=== PATIENT | female | born 1950 | race Asian ===

== ENCOUNTER 2018-11-13 16:19 | Inpatient (IN) | payer MEDICAID ==
[~2018-11-13] VITALS: Ht 160 cm; Wt 62.2 kg
[~2018-11-13 16:19] MED LIST: ALBU2.5V8 IH; BUDE10.2 IH; DOXY100T PO; ESOM40CA PO; HYDR-2145 PO; LOSA-73 PO; METF500T16 PO; METH4TAB2 PO; TIOT18CA IH
[2018-11-13] MEDS ORDERED: methylPREDNISolone SOD SUCC PF 125 MG/2 ML VIAL. IV ONE (17:00)
[2018-11-13] MEDS ORDERED: IPRATRPIUM/ALBUTEROL 0.5/2.5MG 3 ML NEBU. NEB ONE ×2 (17:00→17:45)
--- NOTE | 2018-11-13 17:03 | PHYS DOC ---
Past Medical History Past Medical History: Asthma, CHF, COPD, Diabetes-Type II, GERD, Hypertension (RUDI PAEZ APRN) Past Surgical History: Cholecystectomy (RUDI PAEZ APRN) Alcohol Use: None Drug Use: None (RUDI PAEZ APRN) Adult General Chief Complaint Chief Complaint: ASTHMA HPI HPI 68-year-old female presents to ER via POV with her daughter who is translating as patient speaks Tajik. Per daughter patient has history of asthma and for the past week has had nonproductive cough. She reports in the past few days patient has complained of mid chest pain and intermittent shortness of air. Patient denies fever, urinary symptoms, or swelling. She reports she has had a couple episodes of diarrhea over the past week. Patient reports history of diabetes and hypertension. Patient denies smoking history. Patient did drive from [place] approximately 2 weeks ago to visit family here. (RUDI PAEZ APRN) Review of Systems Review of Systems Constitutional: Denies fever or chills [] Eyes: Denies change in visual acuity, redness, or eye pain [] HENT: Denies nasal congestion. Reports sore throat Respiratory: Reports nonprod. cough and intermittent SOA Cardiovascular: Reports mid CP GI: Denies abdominal pain, nausea, vomiting, bloody stools. Reports diarrhea over past few days-couple of episodes : Denies dysuria or hematuria [] Musculoskeletal: Denies back/neck pain or joint pain [] Integument: Denies rash or skin lesions [] Neurologic: Denies headache, focal weakness or sensory changes [] Endocrine: Denies polyuria or polydipsia [] All other systems were reviewed and found to be within normal limits, except as documented in this note. (RUDI PAEZ APRN) Current Medications Current Medications Current Medications Medications (Trade) Dose Ordered Sig/Santhosh Start Time Stop Time Status Last Admin Dose Admin Albuterol/ Ipratropium (Duoneb) 3 ml 1X ONCE 11/13/18 17:45 11/13/18 17:46 DC 11/13/18 17:50 3 ML Azithromycin 250 ml @ 250 mls/hr 1X ONCE 11/13/18 18:45 11/13/18 19:44 DC 11/13/18 19:26 250 MLS/HR Ceftriaxone Sodium (Rocephin) 1 gm 1X ONCE 11/13/18 18:45 11/13/18 18:46 DC 11/13/18 19:27 1 GM Magnesium Sulfate 50 ml @ 25 mls/hr 1X ONCE 11/13/18 18:15 11/13/18 20:14 DC 11/13/18 19:27 25 MLS/HR Methylprednisolone Sodium Succinate (SOLU-Medrol 125MG VIAL) 125 mg 1X ONCE 11/13/18 17:00 11/13/18 17:01 DC 11/13/18 17:10 125 MG (EDELMIRA MOYA MD) Allergies Allergies Allergies Coded Allergies Type Severity Reaction Last Updated Verified No Known Drug Allergies 09/30/14 No (EDELMIRA MOYA MD) Physical Exam Physical Exam Constitutional: Well developed, well nourished, no acute distress, non-toxic appearance. Fatigued appearance HENT: Normocephalic, atraumatic, bilateral ears normal, oropharynx moist- bilat. tonsillar swelling/mild erythema- uvula midline, no oral exudates, nose normal. [] Eyes: Pupils equal, conjunctiva normal, no discharge. [] Neck: Normal range of motion, no tenderness/nuchal rigidity, supple, no stridor/gross adenopathy Cardiovascular: Heart rate regular rhythm, no murmur [] Lungs & Thorax: Bilateral breath sounds clear to auscultation- diminished air movement throughout all lung bowman- less in bases Abdomen: Bowel sounds normal, soft, no tenderness, no masses, no pulsatile masses. [] Skin: Warm, dry, no erythema, no rash. [] Back: No tenderness, no CVA tenderness. [] Extremities: No tenderness, no cyanosis, no clubbing, ROM intact, no edema. [] Neurologic: Alert and oriented X 3, normal motor function, normal sensory function, no focal deficits noted. [] Psychologic: Affect normal, judgement normal, mood normal. [] (REFFITT,RUDI Ocampo APRN) Current Patient Data Vital Signs Vital Signs Date Time Temp Pulse Resp B/P (MAP) Pulse Ox O2 Delivery O2 Flow Rate FiO2 11/13/18 18:00 86 141/65 (90) 91 Room Air 11/13/18 16:27 98.3 16 98.3 (EDELMIRA MOYA MD) Lab Values Laboratory Tests Test 11/13/18 17:10 8/5/19 18:17 White Blood Count 13.8 x10^3/uL (4.0-11.0) H Red Blood Count 4.32 x10^6/uL (3.50-5.40) Hemoglobin 11.5 g/dL (12.0-15.5) L Hematocrit 35.2 % (36.0-47.0) L Mean Corpuscular Volume 82 fL (79-100) Mean Corpuscular Hemoglobin 27 pg (25-35) Mean Corpuscular Hemoglobin Concent 33 g/dL (31-37) Red Cell Distribution Width 14.8 % (11.5-14.5) H Platelet Count 302 x10^3/uL (140-400) Neutrophils (%) (Auto) 76 % (31-73) H Lymphocytes (%) (Auto) 18 % (24-48) L Monocytes (%) (Auto) 4 % (0-9) Eosinophils (%) (Auto) 1 % (0-3) Basophils (%) (Auto) 1 % (0-3) Neutrophils # (Auto) 10.4 x10^3/uL (1.8-7.7) H Lymphocytes # (Auto) 2.5 x10^3/uL (1.0-4.8) Monocytes # (Auto) 0.5 x10^3/uL (0.0-1.1) Eosinophils # (Auto) 0.2 x10^3/uL (0.0-0.7) Basophils # (Auto) 0.1 x10^3/uL (0.0-0.2) D-Dimer (Lis) 0.35 ug/mlFEU (0.00-0.50) Sodium Level 140 mmol/L (136-145) Potassium Level 3.3 mmol/L (3.5-5.1) L Chloride Level 100 mmol/L (98-107) Carbon Dioxide Level 28 mmol/L (21-32) Anion Gap 12 (6-14) Blood Urea Nitrogen 9 mg/dL (7-20) Creatinine 0.7 mg/dL (0.6-1.0) Estimated GFR (Cockcroft-Gault) 83.5 BUN/Creatinine Ratio 13 (6-20) Glucose Level 112 mg/dL (70-99) H Calcium Level 9.3 mg/dL (8.5-10.1) Magnesium Level 1.4 mg/dL (1.8-2.4) L Total Bilirubin 0.3 mg/dL (0.2-1.0) Aspartate Amino Transferase (AST) 14 U/L (15-37) L Alanine Aminotransferase (ALT) 16 U/L (14-59) Alkaline Phosphatase 55 U/L (46-116) Troponin I Quantitative < 0.017 ng/mL (0.000-0.055) Total Protein 7.9 g/dL (6.4-8.2) Albumin 3.3 g/dL (3.4-5.0) L Albumin/Globulin Ratio 0.7 (1.0-1.7) L Urine Collection Type Void Urine Color Straw Urine Clarity Clear Urine pH 6.5 Urine Specific Clay <=1.005 Urine Protein Negative mg/dL (NEG-TRACE) Urine Glucose (UA) Negative mg/dL (NEG) Urine Ketones (Stick) Negative mg/dL (NEG) Urine Blood Trace (NEG) Urine Nitrite Negative (NEG) Urine Bilirubin Negative (NEG) Urine Urobilinogen Dipstick 0.2 mg/dL (0.2 mg/dL) Urine Leukocyte Esterase Negative (NEG) Urine RBC Rare /HPF (0-2) Urine WBC 0 /HPF (0-4) Urine Squamous Epithelial Cells Occ /LPF Urine Bacteria 0 /HPF (0-FEW) Laboratory Tests 11/13/18 17:10 Laboratory Tests 11/13/18 17:10 (EDELMIRA MOYA MD) Lab Values Laboratory Tests Test 11/13/18 17:10 11/13/18 18:17 White Blood Count 13.8 x10^3/uL (4.0-11.0) H Red Blood Count 4.32 x10^6/uL (3.50-5.40) Hemoglobin 11.5 g/dL (12.0-15.5) L Hematocrit 35.2 % (36.0-47.0) L Mean Corpuscular Volume 82 fL (79-100) Mean Corpuscular Hemoglobin 27 pg (25-35) Mean Corpuscular Hemoglobin Concent 33 g/dL (31-37) Red Cell Distribution Width 14.8 % (11.5-14.5) H Platelet Count 302 x10^3/uL (140-400) Neutrophils (%) (Auto) 76 % (31-73) H Lymphocytes (%) (Auto) 18 % (24-48) L Monocytes (%) (Auto) 4 % (0-9) Eosinophils (%) (Auto) 1 % (0-3) Basophils (%) (Auto) 1 % (0-3) Neutrophils # (Auto) 10.4 x10^3/uL (1.8-7.7) H Lymphocytes # (Auto) 2.5 x10^3/uL (1.0-4.8) Monocytes # (Auto) 0.5 x10^3/uL (0.0-1.1) Eosinophils # (Auto) 0.2 x10^3/uL (0.0-0.7) Basophils # (Auto) 0.1 x10^3/uL (0.0-0.2) D-Dimer (Lis) 0.35 ug/mlFEU (0.00-0.50) Sodium Level 140 mmol/L (136-145) Potassium Level 3.3 mmol/L (3.5-5.1) L Chloride Level 100 mmol/L (98-107) Carbon Dioxide Level 28 mmol/L (21-32) Anion Gap 12 (6-14) Blood Urea Nitrogen 9 mg/dL (7-20) Creatinine 0.7 mg/dL (0.6-1.0) Estimated GFR (Cockcroft-Gault) 83.5 BUN/Creatinine Ratio 13 (6-20) Glucose Level 112 mg/dL (70-99) H Calcium Level 9.3 mg/dL (8.5-10.1) Magnesium Level 1.4 mg/dL (1.8-2.4) L Total Bilirubin 0.3 mg/dL (0.2-1.0) Aspartate Amino Transferase (AST) 14 U/L (15-37) L Alanine Aminotransferase (ALT) 16 U/L (14-59) Alkaline Phosphatase 55 U/L (46-116) Troponin I Quantitative < 0.017 ng/mL (0.000-0.055) Total Protein 7.9 g/dL (6.4-8.2) Albumin 3.3 g/dL (3.4-5.0) L Albumin/Globulin Ratio 0.7 (1.0-1.7) L Urine Collection Type Void Urine Color Straw Urine Clarity Clear Urine pH 6.5 Urine Specific Clay <=1.005 Urine Protein Negative mg/dL (NEG-TRACE) Urine Glucose (UA) Negative mg/dL (NEG) Urine Ketones (Stick) Negative mg/dL (NEG) Urine Blood Trace (NEG) Urine Nitrite Negative (NEG) Urine Bilirubin Negative (NEG) Urine Urobilinogen Dipstick 0.2 mg/dL (0.2 mg/dL) Urine Leukocyte Esterase Negative (NEG) Urine RBC Rare /HPF (0-2) Urine WBC 0 /HPF (0-4) Urine Squamous Epithelial Cells Occ /LPF Urine Bacteria 0 /HPF (0-FEW) Laboratory Tests 11/13/18 17:10 Laboratory Tests 11/13/18 17:10 (RUDI PAEZ APRN) EKG EKG EKG obtained 11/13/18 at 1658 Interpreted by ER physician Sinus rhythm Rate 91 No STEMI (RUDI PAEZ APRN) Radiology/Procedures Radiology/Procedures [] (RUDI PAEZ APRN) Course & Med Decision Making Course & Med Decision Making Pertinent Labs and Imaging studies reviewed. (See chart for details) 1835: Dr. Moya viewed pt's chest xray- probable RLL infiltr. Pt's WBCs at 13.4. Will have blood cxs obtained and lactic. She with no recent hospitalization will start her on IV Rocephin and azithromycin. Will admit to hospitalist for further care and monitoring. Patient has received 2 DuoNeb treatments with O2 saturation currently 99%. Patient received Solu-Medrol 125 mg IV. Mg was 1.4 on labs- 2gms Mg given IV. Patient appears fatigued and does continue to have some mid chest discomfort during coughing episodes which is reproducible on palpation. EKG with no acute ST elevation or STEMI and troponin was negative. With patient's recent travel from [place] 2 weeks ago d-dimer was obtained which was normal limits. Test results were discussed with patient and her family. Discussed plans for admission and all agreeable with admitting plan. 1845: Spoke with Dr. Garduno, hospitalist and discussed pt's case/admit plan. Pt had not mentioned during initial exam but past records show prior admit with COPD exacerb. (RUDI PAEZ APRN) Course & Med Decision Making Staff Physician Addendum: I was working in the ER during the course of this patient's visit. I was available for consultation as needed, but I was not directly involved in the care of this patient. (EDELMIRA MOYA MD) Dragon Disclaimer Dragon Disclaimer This electronic medical record was generated, in whole or in part, using a voice recognition dictation system. (RUDI PAEZ APRN) Departure Departure Impression: Primary Impression: RLL pneumonia Disposition: ADMITTED INPATIENT Admitting Physician: ETIENNE (RUDI PAEZ APRN) Condition: STABLE Referrals: NO PCP (PCP) RUDI PAEZ APRN Nov 13, 2018 17:03 EDELMIRA MOYA MD Nov 13, 2018 23:08
[2018-11-13 17:19] LABS: BASO # 0.1 x10^3/uL (0.0-0.2); BASO % 1 % (0-3); EOS # 0.2 x10^3/uL (0.0-0.7); EOS % 1 % (0-3); HEMATOCRIT 35.2 % (36.0-47.0); HEMOGLOBIN 11.5 g/dL (12.0-15.5); LYMPH # 2.5 x10^3/uL (1.0-4.8); LYMPH % 18 % (24-48); MEAN CORPUSCULAR HEMOGLOBIN 27 pg (25-35); MEAN CORPUSCULAR HGB CONC 33 g/dL (31-37); MEAN CORPUSCULAR VOLUME 82 fL (79-100); MONO # 0.5 x10^3/uL (0.0-1.1); MONO % 4 % (0-9); NEUT # 10.4 x10^3/uL (1.8-7.7); NEUT % 76 % (31-73); PLATELET COUNT 302 x10^3/uL (140-400); RED BLOOD COUNT 4.32 x10^6/uL (3.50-5.40); RED CELL DISTRIBUTION WIDTH 14.8 % (11.5-14.5); WHITE BLOOD COUNT 13.8 x10^3/uL (4.0-11.0)
[2018-11-13 17:34] LABS: CALCIUM 9.3 mg/dL (8.5-10.1); CREATININE 0.7 mg/dL (0.6-1.0); GFR 83.5; POTASSIUM 3.3 mmol/L (3.5-5.1)
[2018-11-13 17:40] LABS: ALBUMIN 3.3 g/dL (3.4-5.0); ALBUMIN/GLOBULIN RATIO 0.7 (1.0-1.7); MAGNESIUM 1.4 mg/dL (1.8-2.4); TOTAL BILIRUBIN 0.3 mg/dL (0.2-1.0); TOTAL PROTEIN 7.9 g/dL (6.4-8.2)
[2018-11-13] MEDS ORDERED: MAGNESIUM SULFATE 2GM 50 ML IV ONE (18:15)
[2018-11-13 18:35] LABS: BILIRUBIN,URINE NEGATIVE (NEG); CLARITY,URINE CLEAR; NITRITE,URINE NEGATIVE (NEG); PH,URINE 6.5; PROTEIN,URINE NEGATIVE (NEG-TRACE); UROBILINOGEN,URINE 0.2 mg/dL (0.2 mg/dL)
[2018-11-13] MEDS ORDERED: AZITHRMYCN 500MG IVPB FOR OMNI 250 ML IV ONE (18:45)
[2018-11-13] MEDS ORDERED: cefTRIAXone IV Push 1 GM VIAL. IVP ONE (18:45)
[2018-11-13 19:11] LABS: BACTERIA,URINE 0 /HPF (0-FEW); COLOR,URINE STRAW; RBC,URINE RARE /HPF (0-2); SQUAMOUS EPITHELIAL CELL,UR OCC /LPF; WBC,URINE 0 /HPF (0-4)
[2018-11-13] MEDS ORDERED: ACETAMINOPHEN 325 MG TABLET. PO PRN (19:30)
[2018-11-13] MEDS ORDERED: IPRATRPIUM/ALBUTEROL 0.5/2.5MG 3 ML NEBU. NEB SCH (20:00)
[2018-11-13] MEDS ORDERED: DEXTROSE 50% 25 GM / 50ML DISP.SYRIN. IV PRN (20:15)
[2018-11-13] MEDS ORDERED: ALBUTEROL SULFATE 2.5 MG/3 ML NEBU. INH PRN (20:15)
[2018-11-13] MEDS ORDERED: POTASSIUM CHLORIDE 20 MEQ TABLET.ER. PO ONE (20:15)
[2018-11-13] MEDS ORDERED: IV DEXTROSE 5% 250 ML BAG. IV PRN (20:15)
[2018-11-13] MEDS ORDERED: NON FORMULARY ITEM (Budesonide/Formoterol Fumarate (Symbicort 160-4.5 Mcg Inhaler) 2 PUFF) IH SCH (21:00)
[2018-11-13] MEDS ORDERED: IV NORMAL SALINE 500ML BAG 500 ML IV ONE (22:00)
[2018-11-13] MEDS: INSULIN LISPRO 300 UNITS/3 ML INSULN.PEN. SQ SCH (22:02)
[2018-11-13 23:00] VITALS: BP 131/62
[2018-11-13] MEDS: ALBUTEROL SULFATE 2.5 MG/3 ML NEBU. NEB SCH (23:28)
[2018-11-14 03:00] VITALS: BP 135/70
[2018-11-14 07:00] VITALS: BP 160/82
[2018-11-14] MEDS: ALBUTEROL SULFATE 2.5 MG/3 ML NEBU. NEB SCH ×2 (07:15→12:00)
--- NOTE | 2018-11-14 07:24 | EKG ---
[facility] [address] [place] [address] Test Date: 2018-11-13 Test Time: 16:58:35 Pat Name: NORA OWUSU Department: Room: Gender: F [employer]: : 1950 Requested By: RUDI PAEZ Order Number: [id number] Reading MD: Measurements Intervals Graham Rate: 91 P: 90 UT: 148 QRS: 37 QRSD: 78 T: 52 QT: 360 QTc: 444 Interpretive Statements SINUS RHYTHM NORMAL ECG RI6.01 No previous ECG available for comparison
--- NOTE | 2018-11-14 07:46 | RAD ---
CHEST PA LATERAL History: Cough, chest pain Comparison: 09/30/2014 AP view of the chest. Findings: The cardiomediastinal silhouette is normal. Pulmonary vasculature is normal. The lungs are clear. Very minimal atelectasis along the anterior aspect of a major fissure suggested on the lateral view. No pleural effusion or pneumothorax is seen. There is no acute bone abnormality. Mild pulmonary hyperinflation. IMPRESSION: No suspicious cardiopulmonary process. Electronically signed by: Arley Hyde MD (11/14/2018 7:43 AM) [facility]
[2018-11-14] MEDS ORDERED: BUDESONIDE 0.5 MG/2 ML NEBU. NEB SCH (08:00)
[2018-11-14] MEDS: PANTOPRAZOLE 40 MG TABLET.DR. PO SCH (08:34)
[2018-11-14] MEDS: hydroCHLOROthiazide 25 MG TABLET PO SCH (08:35)
[2018-11-14] MEDS: metFORMIN 500 MG TABLET PO SCH ×2 (08:35→16:24)
[2018-11-14] MEDS: LOSARTAN POTASSIUM 50 MG TABLET. PO SCH (08:35)
[2018-11-14] MEDS: INSULIN LISPRO 300 UNITS/3 ML INSULN.PEN. SQ SCH ×4 (08:40→21:44)
[2018-11-14] MEDS ORDERED: predniSONE 20 MG TABLET PO SCH (09:00)
[2018-11-14 09:04] LABS: BASO % 0 % (0-3); EOS % 0 % (0-3); HEMATOCRIT 36.4 % (36.0-47.0); HEMOGLOBIN 11.8 g/dL (12.0-15.5); LYMPH # 1.2 x10^3/uL (1.0-4.8); LYMPH % 10 % (24-48); MEAN CORPUSCULAR HEMOGLOBIN 26 pg (25-35); MEAN CORPUSCULAR HGB CONC 32 g/dL (31-37); MEAN CORPUSCULAR VOLUME 82 fL (79-100); MONO # 0.1 x10^3/uL (0.0-1.1); MONO % 1 % (0-9); NEUT # 10.3 x10^3/uL (1.8-7.7); NEUT % 89 % (31-73); PLATELET COUNT 330 x10^3/uL (140-400); RED BLOOD COUNT 4.47 x10^6/uL (3.50-5.40); RED CELL DISTRIBUTION WIDTH 15.2 % (11.5-14.5); WHITE BLOOD COUNT 11.7 x10^3/uL (4.0-11.0)
[2018-11-14 09:18] LABS: ALBUMIN 3.3 g/dL (3.4-5.0); ALBUMIN/GLOBULIN RATIO 0.7 (1.0-1.7); CALCIUM 9.2 mg/dL (8.5-10.1); CREATININE 0.7 mg/dL (0.6-1.0); GFR 83.5; POTASSIUM 3.9 mmol/L (3.5-5.1); TOTAL BILIRUBIN 0.3 mg/dL (0.2-1.0); TOTAL PROTEIN 8.2 g/dL (6.4-8.2)
--- NOTE | 2018-11-14 09:37 | PDOC1 ---
History and Physical Date of Admission Date of Admission DATE: 11/14/18 TIME: 09:36 Identification/Chief Complaint Chief Complaint SEEN IN ER via POV with her daughter who is translating as patient speaks Vietnamese. Per daughter patient has history of asthma and for the past week has had nonproductive cough. She reports in the past few days patient has complained of mid chest pain and intermittent shortness of air. Patient denies fever, urinary symptoms, or swelling. She reports she has had a couple episodes of diarrhea over the past week. Patient reports history of diabetes and hypertension. denies smoking history. became hypoxic and placed on o2 she is still in mild distress with accessory muscle use today per daughter, her country had lots of air pollution, cooked with coal, never smoked Past Medical History Past Medical History Past Medical History: Asthma, CHF, COPD, Diabetes-Type II, GERD, Hypertension Past Medical History Past Medical History: Asthma, CHF, COPD, Diabetes-Type II, GERD, Hypertension Past Surgical History: No Surgical History Alcohol Use: None Drug Use: None FHX DIABETES Family History Family History: Hypertension Social History Smoke: No ALCOHOL: none Drugs: None Current Problem List Problem List Problems Medical Problems: (1) RLL pneumonia Status: Acute Current Medications Current Medications Current Medications Albuterol/ Ipratropium (Duoneb) 3 ml 1X ONCE NEB Last administered on 11/13/18at 16:54; Start 11/13/18 at 17:00; Stop 11/13/18 at 17:01; Status DC Methylprednisolone Sodium Succinate (SOLU-Medrol 125MG VIAL) 125 mg 1X ONCE IV Last administered on 11/13/18at 17:10; Start 11/13/18 at 17:00; Stop 11/13/18 at 17:01; Status DC Albuterol/ Ipratropium (Duoneb) 3 ml 1X ONCE NEB Last administered on 11/13/18at 17:50; Start 11/13/18 at 17:45; Stop 11/13/18 at 17:46; Status DC Magnesium Sulfate 50 ml @ 25 mls/hr 1X ONCE IV Last administered on 11/13/18at 19:27; Start 11/13/18 at 18:15; Stop 11/13/18 at 20:14; Status DC Ceftriaxone Sodium (Rocephin) 1 gm 1X ONCE IVP Last administered on 11/13/18at 19:27; Start 11/13/18 at 18:45; Stop 11/13/18 at 18:46; Status DC Azithromycin 250 ml @ 250 mls/hr 1X ONCE IV Last administered on 11/13/18 19:26; Start 11/13/18 at 18:45; Stop 11/13/18 at 19:44; Status DC Acetaminophen (Tylenol) 650 mg PRN Q4HRS PRN PO FEVER Last administered on 11/13/18 22:34; Start 11/13/18 at 19:30; Stop 11/14/18 at 19:29 Albuterol/ Ipratropium (Duoneb) 3 ml RTQID NEB Last administered on 11/13/18 19:51; Start 11/13/18 at 20:00; Stop 11/13/18 at 20:43; Status DC Albuterol Sulfate (Ventolin Neb Soln) 2.5 mg PRN Q2HRS PRN INH shorntess of breath; Start 11/13/18 at 20:15 Hydrochlorothiazide (Hydrodiuril) 25 mg DAILY PO Last administered on 11/14/18 08:41; Start 11/14/18 at 09:00 Losartan Potassium (Cozaar) 50 mg DAILY PO Last administered on 11/14/18 08:41; Start 11/14/18 at 09:00 Non-Formulary Medication (Budesonide/ Formoterol Fumarate (Symbicort 160-4.5 Mcg Inhaler)) 2 puff BID IH ; Start 11/13/18 at 21:00; Status UNV Pantoprazole Sodium (Protonix) 40 mg DAILYAC PO Last administered on 11/14/18 08:41; Start 11/14/18 at 07:30 Metformin HCl (Glucophage) 500 mg BIDWMEALS PO Last administered on 11/14/18 08:41; Start 11/14/18 at 08:00 Prednisone (Prednisone) 20 mg DAILY PO Last administered on 11/14/18 08:41; Start 11/14/18 at 09:00 Potassium Chloride (Klor-Con) 40 meq 1X ONCE PO Last administered on 11/13/18 21:54; Start 11/13/18 at 20:15; Stop 11/13/18 at 20:38; Status DC Insulin Human Lispro (HumaLOG) 0-7 UNITS TIDWMEALHC SQ Last administered on 11/14/18at 08:41; Start 11/13/18 at 21:00 Dextrose (Dextrose 50%-Water Syringe) 12.5 gm PRN Q15MIN PRN IV SEE COMMENTS; Start 11/13/18 at 20:15; Status Cancel Dextrose 250 ml PRN Q15MIN PRN IV SEE COMMENTS; Start 11/13/18 at 20:15 Budesonide (Pulmicort) 0.5 mg RTBID NEB Last administered on 11/14/18at 07:51; Start 11/14/18 at 08:00 Albuterol Sulfate (Ventolin Neb Soln) 2.5 mg Q6HRS NEB Last administered on 11/14/18at 07:51; Start 11/14/18 at 00:00 Sodium Chloride 500 ml @ 500 mls/hr 1X ONCE IV Last administered on 11/13/18at 21:41; Start 11/13/18 at 22:00; Stop 11/13/18 at 22:59; Status DC Active Scripts Active Doxycycline Hyclate 100 Mg Tablet 100 Mg PO BID Medrol (Methylprednisolone) 4 Mg Tab.ds.pk 1 Pkg PO UD 6 Days Reported Hydrochlorothiazide Tablet (Hydrochlorothiazide) 25 Mg Tablet 1 Tab PO DAILY Spiriva (Tiotropium Joes) 18 Mcg Cap.w.dev 1 Cap IH DAILY Proventil Hfa Inhaler (Albuterol Sulfate) 6.7 Gm Hfa.aer.ad 2 Puff IH QID Symbicort 160-4.5 Mcg Inhaler (Budesonide/Formoterol Fumarate) 10.2 Gm Hfa.aer.ad 2 Puff IH BID Metformin Hcl 500 Mg Tablet 1 Tab PO BID Losartan Potassium 50 Mg Tablet 1 Tab PO DAILY Nexium Capsule (Esomeprazole Magnesium) 40 Mg Capsule.dr 1 Cap PO DAILY Allergies Allergies: Coded Allergies: No Known Drug Allergies (Unverified , 09/30/14) ROS Review of System Review of Systems Review of Systems Constitutional: Denies fever or chills [] Eyes: Denies change in visual acuity, redness, or eye pain [] HENT: Denies nasal congestion. Reports sore throat Respiratory: Reports nonprod. cough and intermittent SOA Cardiovascular: Reports mid CP GI: Denies abdominal pain, nausea, vomiting, bloody stools. Reports diarrhea over past few days-couple of episodes : Denies dysuria or hematuria [] Musculoskeletal: Denies back/neck pain or joint pain [] Integument: Denies rash or skin lesions [] Neurologic: Denies headache, focal weakness or sensory changes [] Endocrine: Denies polyuria or polydipsia [] 14 PT systems were reviewed and found to be within normal limits, except as documented . Physical Exam Physical Exam Physical Exam Physical Exam Constitutional: Well developed, well nourished, MILD acute distress, non-toxic appearance. Fatigued HENT: Normocephalic, atraumatic, bilateral ears normal, oropharynx moist- bilat. tonsillar swelling/mild erythema- uvula midline, no oral exudates, nose normal. [] Eyes: Pupils equal, conjunctiva normal, no discharge. [] Neck: Normal range of motion, no tenderness/nuchal rigidity, supple, no stridor/gross adenopathy Cardiovascular: Heart rate regular rhythm, no murmur [] Lungs & Thorax: rll crackles// diminished air movement throughout all lung bowman- less in bases mild labored effort accessory muscle use Abdomen: Bowel sounds normal, soft, no tenderness, no masses, no pulsatile masses. [] Skin: Warm, dry, no erythema, no rash. [] Back: No tenderness, no CVA tenderness. [] Extremities: No tenderness, no cyanosis, no clubbing, ROM intact, no edema. [] Neurologic: Alert and oriented X 3, normal motor function, normal sensory function, no focal deficits noted. [] Psychologic: Affect normal, judgement normal, mood normal. [] General: Alert, Oriented X3, Cooperative, mild distress HEENT: Atraumatic, PERRLA, EOMI, Mucous membr. moist/pink Heart: RRR, no murmurs Breasts: Not examined Abdomen: Normal bowel sounds, Soft, No tenderness Rectal Exam: not examined Extremities: No cyanosis Neuro: Normal speech, Cranial nerves 3-12 NL Psych/Mental Status: Mental status NL, Mood NL Vitals Vitals Vital Signs Date Time Temp Pulse Resp B/P (MAP) Pulse Ox O2 Delivery O2 Flow Rate FiO2 11/14/18 08:41 88 160/82 11/14/18 07:51 95 Room Air 11/14/18 07:00 98.3 18 2.0 98.3 Labs Labs Laboratory Tests Test 11/13/18 17:10 11/13/18 18:17 11/13/18 19:04 11/13/18 20:08 White Blood Count 13.8 x10^3/uL (4.0-11.0) Red Blood Count 4.32 x10^6/uL (3.50-5.40) Hemoglobin 11.5 g/dL (12.0-15.5) Hematocrit 35.2 % (36.0-47.0) Mean Corpuscular Volume 82 fL (79-100) Mean Corpuscular Hemoglobin 27 pg (25-35) Mean Corpuscular Hemoglobin Concent 33 g/dL (31-37) Red Cell Distribution Width 14.8 % (11.5-14.5) Platelet Count 302 x10^3/uL (140-400) Neutrophils (%) (Auto) 76 % (31-73) Lymphocytes (%) (Auto) 18 % (24-48) Monocytes (%) (Auto) 4 % (0-9) Eosinophils (%) (Auto) 1 % (0-3) Basophils (%) (Auto) 1 % (0-3) Neutrophils # (Auto) 10.4 x10^3/uL (1.8-7.7) Lymphocytes # (Auto) 2.5 x10^3/uL (1.0-4.8) Monocytes # (Auto) 0.5 x10^3/uL (0.0-1.1) Eosinophils # (Auto) 0.2 x10^3/uL (0.0-0.7) Basophils # (Auto) 0.1 x10^3/uL (0.0-0.2) D-Dimer (Lis) 0.35 ug/mlFEU (0.00-0.50) Sodium Level 140 mmol/L (136-145) Potassium Level 3.3 mmol/L (3.5-5.1) Chloride Level 100 mmol/L (98-107) Carbon Dioxide Level 28 mmol/L (21-32) Anion Gap 12 (6-14) Blood Urea Nitrogen 9 mg/dL (7-20) Creatinine 0.7 mg/dL (0.6-1.0) Estimated GFR (Cockcroft-Gault) 83.5 BUN/Creatinine Ratio 13 (6-20) Glucose Level 112 mg/dL (70-99) Calcium Level 9.3 mg/dL (8.5-10.1) Magnesium Level 1.4 mg/dL (1.8-2.4) Total Bilirubin 0.3 mg/dL (0.2-1.0) Aspartate Amino Transf (AST/SGOT) 14 U/L (15-37) Alanine Aminotransferase (ALT/SGPT) 16 U/L (14-59) Alkaline Phosphatase 55 U/L (46-116) Troponin I Quantitative < 0.017 ng/mL (0.000-0.055) Total Protein 7.9 g/dL (6.4-8.2) Albumin 3.3 g/dL (3.4-5.0) Albumin/Globulin Ratio 0.7 (1.0-1.7) Urine Collection Type Void Urine Color Straw Urine Clarity Clear Urine pH 6.5 Urine Specific [place] <=1.005 Urine Protein Negative mg/dL (NEG-TRACE) Urine Glucose (UA) Negative mg/dL (NEG) Urine Ketones (Stick) Negative mg/dL (NEG) Urine Blood Trace (NEG) Urine Nitrite Negative (NEG) Urine Bilirubin Negative (NEG) Urine Urobilinogen Dipstick 0.2 mg/dL (0.2 mg/dL) Urine Leukocyte Esterase Negative (NEG) Urine RBC Rare /HPF (0-2) Urine WBC 0 /HPF (0-4) Urine Squamous Epithelial Cells Occ /LPF Urine Bacteria 0 /HPF (0-FEW) Group A Streptococcus Rapid Negative (NEGATIVE) Lactic Acid Level 4.0 mmol/L (0.4-2.0) Test 11/13/18 21:50 11/13/18 22:10 11/14/18 05:40 11/14/18 07:10 Glucose (Fingerstick) 261 mg/dL (70-99) 189 mg/dL (70-99) Lactic Acid Level 3.2 mmol/L (0.4-2.0) White Blood Count 11.7 x10^3/uL (4.0-11.0) Red Blood Count 4.47 x10^6/uL (3.50-5.40) Hemoglobin 11.8 g/dL (12.0-15.5) Hematocrit 36.4 % (36.0-47.0) Mean Corpuscular Volume 82 fL (79-100) Mean Corpuscular Hemoglobin 26 pg (25-35) Mean Corpuscular Hemoglobin Concent 32 g/dL (31-37) Red Cell Distribution Width 15.2 % (11.5-14.5) Platelet Count 330 x10^3/uL (140-400) Neutrophils (%) (Auto) 89 % (31-73) Lymphocytes (%) (Auto) 10 % (24-48) Monocytes (%) (Auto) 1 % (0-9) Eosinophils (%) (Auto) 0 % (0-3) Basophils (%) (Auto) 0 % (0-3) Neutrophils # (Auto) 10.3 x10^3/uL (1.8-7.7) Lymphocytes # (Auto) 1.2 x10^3/uL (1.0-4.8) Monocytes # (Auto) 0.1 x10^3/uL (0.0-1.1) Eosinophils # (Auto) 0.0 x10^3/uL (0.0-0.7) Basophils # (Auto) 0.0 x10^3/uL (0.0-0.2) Sodium Level 142 mmol/L (136-145) Potassium Level 3.9 mmol/L (3.5-5.1) Chloride Level 102 mmol/L (98-107) Carbon Dioxide Level 26 mmol/L (21-32) Anion Gap 14 (6-14) Blood Urea Nitrogen 8 mg/dL (7-20) Creatinine 0.7 mg/dL (0.6-1.0) Estimated GFR (Cockcroft-Gault) 83.5 BUN/Creatinine Ratio 11 (6-20) Glucose Level 212 mg/dL (70-99) Calcium Level 9.2 mg/dL (8.5-10.1) Total Bilirubin 0.3 mg/dL (0.2-1.0) Aspartate Amino Transf (AST/SGOT) 12 U/L (15-37) Alanine Aminotransferase (ALT/SGPT) 15 U/L (14-59) Alkaline Phosphatase 62 U/L (46-116) Total Protein 8.2 g/dL (6.4-8.2) Albumin 3.3 g/dL (3.4-5.0) Albumin/Globulin Ratio 0.7 (1.0-1.7) Laboratory Tests Test 11/13/18 17:10 11/13/18 18:17 11/13/18 19:04 11/13/18 20:08 White Blood Count 13.8 x10^3/uL (4.0-11.0) Red Blood Count 4.32 x10^6/uL (3.50-5.40) Hemoglobin 11.5 g/dL (12.0-15.5) Hematocrit 35.2 % (36.0-47.0) Mean Corpuscular Volume 82 fL (79-100) Mean Corpuscular Hemoglobin 27 pg (25-35) Mean Corpuscular Hemoglobin Concent 33 g/dL (31-37) Red Cell Distribution Width 14.8 % (11.5-14.5) Platelet Count 302 x10^3/uL (140-400) Neutrophils (%) (Auto) 76 % (31-73) Lymphocytes (%) (Auto) 18 % (24-48) Monocytes (%) (Auto) 4 % (0-9) Eosinophils (%) (Auto) 1 % (0-3) Basophils (%) (Auto) 1 % (0-3) Neutrophils # (Auto) 10.4 x10^3/uL (1.8-7.7) Lymphocytes # (Auto) 2.5 x10^3/uL (1.0-4.8) Monocytes # (Auto) 0.5 x10^3/uL (0.0-1.1) Eosinophils # (Auto) 0.2 x10^3/uL (0.0-0.7) Basophils # (Auto) 0.1 x10^3/uL (0.0-0.2) D-Dimer (Lis) 0.35 ug/mlFEU (0.00-0.50) Sodium Level 140 mmol/L (136-145) Potassium Level 3.3 mmol/L (3.5-5.1) Chloride Level 100 mmol/L (98-107) Carbon Dioxide Level 28 mmol/L (21-32) Anion Gap 12 (6-14) Blood Urea Nitrogen 9 mg/dL (7-20) Creatinine 0.7 mg/dL (0.6-1.0) Estimated GFR (Cockcroft-Gault) 83.5 BUN/Creatinine Ratio 13 (6-20) Glucose Level 112 mg/dL (70-99) Calcium Level 9.3 mg/dL (8.5-10.1) Magnesium Level 1.4 mg/dL (1.8-2.4) Total Bilirubin 0.3 mg/dL (0.2-1.0) Aspartate Amino Transf (AST/SGOT) 14 U/L (15-37) Alanine Aminotransferase (ALT/SGPT) 16 U/L (14-59) Alkaline Phosphatase 55 U/L (46-116) Troponin I Quantitative < 0.017 ng/mL (0.000-0.055) Total Protein 7.9 g/dL (6.4-8.2) Albumin 3.3 g/dL (3.4-5.0) Albumin/Globulin Ratio 0.7 (1.0-1.7) Urine Collection Type Void Urine Color Straw Urine Clarity Clear Urine pH 6.5 Urine Specific [place] <=1.005 Urine Protein Negative mg/dL (NEG-TRACE) Urine Glucose (UA) Negative mg/dL (NEG) Urine Ketones (Stick) Negative mg/dL (NEG) Urine Blood Trace (NEG) Urine Nitrite Negative (NEG) Urine Bilirubin Negative (NEG) Urine Urobilinogen Dipstick 0.2 mg/dL (0.2 mg/dL) Urine Leukocyte Esterase Negative (NEG) Urine RBC Rare /HPF (0-2) Urine WBC 0 /HPF (0-4) Urine Squamous Epithelial Cells Occ /LPF Urine Bacteria 0 /HPF (0-FEW) Group A Streptococcus Rapid Negative (NEGATIVE) Lactic Acid Level 4.0 mmol/L (0.4-2.0) Test 11/13/18 21:50 11/13/18 22:10 11/14/18 05:40 11/14/18 07:10 Glucose (Fingerstick) 261 mg/dL (70-99) 189 mg/dL (70-99) Lactic Acid Level 3.2 mmol/L (0.4-2.0) White Blood Count 11.7 x10^3/uL (4.0-11.0) Red Blood Count 4.47 x10^6/uL (3.50-5.40) Hemoglobin 11.8 g/dL (12.0-15.5) Hematocrit 36.4 % (36.0-47.0) Mean Corpuscular Volume 82 fL (79-100) Mean Corpuscular Hemoglobin 26 pg (25-35) Mean Corpuscular Hemoglobin Concent 32 g/dL (31-37) Red Cell Distribution Width 15.2 % (11.5-14.5) Platelet Count 330 x10^3/uL (140-400) Neutrophils (%) (Auto) 89 % (31-73) Lymphocytes (%) (Auto) 10 % (24-48) Monocytes (%) (Auto) 1 % (0-9) Eosinophils (%) (Auto) 0 % (0-3) Basophils (%) (Auto) 0 % (0-3) Neutrophils # (Auto) 10.3 x10^3/uL (1.8-7.7) Lymphocytes # (Auto) 1.2 x10^3/uL (1.0-4.8) Monocytes # (Auto) 0.1 x10^3/uL (0.0-1.1) Eosinophils # (Auto) 0.0 x10^3/uL (0.0-0.7) Basophils # (Auto) 0.0 x10^3/uL (0.0-0.2) Sodium Level 142 mmol/L (136-145) Potassium Level 3.9 mmol/L (3.5-5.1) Chloride Level 102 mmol/L (98-107) Carbon Dioxide Level 26 mmol/L (21-32) Anion Gap 14 (6-14) Blood Urea Nitrogen 8 mg/dL (7-20) Creatinine 0.7 mg/dL (0.6-1.0) Estimated GFR (Cockcroft-Gault) 83.5 BUN/Creatinine Ratio 11 (6-20) Glucose Level 212 mg/dL (70-99) Calcium Level 9.2 mg/dL (8.5-10.1) Total Bilirubin 0.3 mg/dL (0.2-1.0) Aspartate Amino Transf (AST/SGOT) 12 U/L (15-37) Alanine Aminotransferase (ALT/SGPT) 15 U/L (14-59) Alkaline Phosphatase 62 U/L (46-116) Total Protein 8.2 g/dL (6.4-8.2) Albumin 3.3 g/dL (3.4-5.0) Albumin/Globulin Ratio 0.7 (1.0-1.7) Images Images CHEST PA LATERAL History: Cough, chest pain Comparison: 09/30/2014 AP view of the chest. Findings: The cardiomediastinal silhouette is normal. Pulmonary vasculature is normal. The lungs are clear. Very minimal atelectasis along the anterior aspect of a major fissure suggested on the lateral view. No pleural effusion or pneumothorax is seen. There is no acute bone abnormality. Mild pulmonary hyperinflation. IMPRESSION: No suspicious cardiopulmonary process. Electronically signed by: Juliette Zamorano MD (11/14/2018 7:43 AM) [facility] DICTATED and SIGNED BY: JULIETTE ZAMORANO MD DATE: 11/14/18 0743 VTE Prophylaxis Ordered VTE Prophylaxis Devices: Yes VTE Pharmacological Prophylaxi: Yes Assessment/Plan Assessment/Plan IMPRESSION 1. Acute hypoxic resp failure 2. acute exac of chronic asthma/// copd ///With bronchospasm 3. leukocytosis 4. SIRS 5. lactic acidosis plan emperic iv antibiotics iv steroid taper 100mg solumedrol q 8 hrs dvt prophylaxis, lovenox budesonide 0.5 mg bid nebulizer singulair 10mg po q hs o2 support zithromax, iv rocephin pulm consult 59 min pt exam, chart review, > 50% of time spent with exam, chart review, pt care coordination LILY HARDY MD Nov 14, 2018 09:37
[2018-11-14 10:42] VITALS: BP 134/64
[2018-11-14 11:45] LABS: % BANDS 1 % (0-9); % LYMPHS 15 % (24-48); % MONOS 1 % (0-10); % SEGS 83 % (35-66); PLT ESTIMATE ADEQUATE (ADEQUATE)
[2018-11-14] MEDS ORDERED: guaiFENesin ORAL 200 MG/10 ML LIQUID. PO PRN (11:45)
[2018-11-14] MEDS ORDERED: 0.9 % SODIUM CHLORIDE 10 ML DISP.SYRIN. IV PRN (11:45)
[2018-11-14] MEDS ORDERED: MAG HYDROX/ALUMINUM HYD/SIMETH 30 ML ORAL.SUSP PO PRN (11:45)
[2018-11-14] MEDS ORDERED: ONDANSETRON PF 4 MG/2 ML VIAL. IV PRN (11:45)
[2018-11-14] MEDS ORDERED: cloNIDine HCL 0.1 MG TABLET PO PRN (11:45)
[2018-11-14] MEDS ORDERED: ACETAMINOPHEN 325 MG TABLET. PO PRN (11:45)
[2018-11-14] MEDS ORDERED: DOCUSATE SODIUM 100 MG CAPSULE. PO PRN (11:45)
[2018-11-14] MEDS: ENOXAPARIN 40 MG/0.4 ML SYRINGE. SQ SCH (12:00)
[2018-11-14] MEDS: IV NORMAL SALINE 1000ML BAG 1,000 ML IV SCH (12:01)
[2018-11-14] MEDS: MAGNESIUM OXIDE 400 MG TABLET PO SCH ×2 (12:10→21:26)
--- NOTE | 2018-11-14 13:35 | CONS ---
DATE OF CONSULTATION: PULMONARY CONSULTATION ATTENDING PHYSICIAN: Dr. Garduno. REASON FOR CONSULTATION: Asthma exacerbation. HISTORY OF PRESENT ILLNESS: The patient is a 68-year-old female who is from [facility]. She does not speak [place], but her daughter was in the room who could speak [place]. The patient has history of asthma. She has no significant tobacco history. She came into the hospital with a nonproductive cough with occasional some light yellow sputum production and some mid chest pain. She has some intermittent shortness of breath. She had some wheezing as well. The patient's chest x-ray was reviewed by me. There was no acute infiltrates. I have reviewed her prescription medication, seems that she has been on Symbicort and anticholinergic inhaler. In addition, she has been on prednisone in the past as well. The last prescription was from August. No nausea, vomiting, but had some diarrhea. PAST MEDICAL HISTORY: History of asthma, history of CHF. Type 2 diabetes, GERD and hypertension. PAST SURGICAL HISTORY: No recent surgeries. FAMILY HISTORY: Hypertension. SOCIAL HISTORY: Nonsmoker. ALLERGIES: None. MEDICATIONS: All reviewed as listed in the MRAD including IV antibiotics, IV Solu-Medrol, DuoNebs. REVIEW OF SYSTEMS: Twelve-point system obtained. Pertinent positives discussed in my history of present illness, otherwise noncontributory. All systems that were negative were reviewed as well. System review was obtained with the help of the patient's daughter. PHYSICAL EXAMINATION: VITAL SIGNS: Reviewed. Afebrile, pulse ox 94% on 2 liters. NECK: Supple. LUNGS: With posterior faint wheezes. CARDIOVASCULAR: Regular rate and rhythm. ABDOMEN: Soft, nontender. EXTREMITIES: With trace pitting edema. LABORATORY DATA: Reviewed. White cell count 13.8, now 11.7; hemoglobin 11.8, platelets normal. BUN is 18, creatinine 0.7. D-dimer 0.35. IMPRESSION: 1. Dyspnea with acute hypoxic respiratory failure secondary to acute asthma exacerbation. 2. Acute bronchitis. 3. Mild lower extremity edema. We will obtain echocardiogram to rule out any left ventricular dysfunction. 4. Normal D-dimer, no workup needed for thromboembolic disease. RECOMMENDATIONS: 1. Continue with present DuoNebs. 2. Add Pulmicort. 3. Continue IV steroids. 4. Continue antibiotics. 5. The patient will continue her bronchodilators including Symbicort and anticholinergic inhaler as an outpatient with p.r.n. prednisone. 6. Discussed with the daughter that she would likely need hospitalization for at least 2 days. 7. DVT prophylaxis with Lovenox. FLORA PAIGE MD DR: YOSSI/annabelle JOB#: [id number] / [id number]
[2018-11-14] MEDS: IPRATRPIUM/ALBUTEROL 0.5/2.5MG 3 ML NEBU. NEB SCH ×3 (13:51→21:14)
[2018-11-14 15:01] VITALS: BP 148/78
--- NOTE | 2018-11-14 15:33 | NUR ---
SW following pt for dc planning. Chart reviewed and pt lives at home with family, isabela Lima. No SW needs or dc recommendations noted at this time. Will continue to follow. Addendum: 11/14/18 at 1534 by DEWEY ARREDONDO Isabela Mack.
--- NOTE | 2018-11-14 15:47 | CARD ---
MR#: [id number] Date of Study: 11/14/2018 Ordering Physician: LILY HARDY, Referring Physician: ANNA LOCKHART Tech: Amy Rivera COLE APPROVED REPORT EXAM: Two-dimensional and M-mode echocardiogram with Doppler and color Doppler. Other Information Quality : Good INDICATION Dyspnea 2D DIMENSIONS Left Atrium(2D)3.2 (1.6-4.0cm)IVSd0.8 (0.7-1.1cm) Aortic Root(2D)2.2 (2.0-3.7cm)LVDd4.1 (3.9-5.9cm) LVOT Diameter1.9 (1.8-2.4cm)PWd0.8 (0.7-1.1cm) LVDs2.6 (2.5-4.0cm)FS (%) 30.0 % SV51.5 mlLVEF(%)60.0 (>50%) Aortic Valve AoV Peak Jordy.137.5cm/sAoV VTI24.3cm AO Peak GR.7.6mmHgLVOT Peak Jordy.103.9cm/s AO Mean GR.4mmHgAVA (VMAX)2.13cm2 XEAN (VTI)2.40cm2 Mitral Valve MV E Gzfncmoq41.0cm/sMV DECEL [id number] MV A Enkmlbrq32.5cm/sE/A Ratio1.2 Pulmonary Vein S1 Dnsjzijz90.7cm/sD2 Dqtdmnps91.1cm/s LEFT VENTRICLE The left ventricle is normal size. There is normal left ventricular wall thickness. The left ventricu lar systolic function is normal and the ejection fraction is within normal range. The Ejection Fracti on is 55-60%. There is normal LV segmental wall motion. Transmitral Doppler flow pattern is Grade I-a bnormal relaxation pattern. RIGHT VENTRICLE The right ventricle is normal size. The right ventricular systolic function is normal. ATRIA The left atrium size is normal. The right atrium size is normal. The interatrial septum is intact wit h no evidence for an atrial septal defect or patent foramen ovale as noted on 2-D or Doppler imaging. There is interatrial septal hypertrophy. AORTIC VALVE The aortic valve is calcified but opens well. Doppler and Color Flow revealed no significant aortic r egurgitation. There is no significant aortic valvular stenosis. MITRAL VALVE The mitral valve is calcified but opens well. Mitral annular calcification is mild. There is no evide nce of mitral valve prolapse. There is no mitral valve stenosis. Doppler and Color-flow revealed trac e mitral regurgitation. TRICUSPID VALVE The tricuspid valve is normal in structure and function. Doppler and Color Flow revealed no tricuspid valve regurgitation noted. There is no tricuspid valve stenosis. PULMONIC VALVE The pulmonic valve is not well visualized. GREAT VESSELS The aortic root is normal in size. The ascending aorta is not well seen. The IVC is normal in size an d collapses >50% with inspiration. PERICARDIAL EFFUSION There is no evidence of significant pericardial effusion. Critical Notification Critical Value: No <Conclusion> The left ventricular systolic function is normal and the ejection fraction is within normal range. Th e Ejection Fraction is 55-60%. There is normal LV segmental wall motion. Signed by : aJs Mann, Electronically Approved : 11/14/2018 15:46:53
[2018-11-14] MEDS: methylPREDNISolone SOD SUCC PF 125 MG/2 ML VIAL. IV SCH ×2 (16:24→21:27)
[2018-11-14] MEDS: cefTRIAXone IV Push 1 GM VIAL. IVP SCH (16:28)
[2018-11-14 19:00] VITALS: BP 150/76
[2018-11-14] MEDS: BUDESONIDE 0.5 MG/2 ML NEBU. NEB SCH (21:10)
[2018-11-14] MEDS: MONTELUKAST SODIUM 10 MG TABLET. PO SCH (21:26)
[2018-11-14 23:06] VITALS: BP 115/61
[2018-11-15] MEDS: IV NORMAL SALINE 1000ML BAG 1,000 ML IV SCH ×3 (01:23→18:25)
[2018-11-15 03:00] VITALS: BP 155/60
[2018-11-15] MEDS ORDERED: diphenhydrAMINE HCL 25 MG CAPSULE PO ONE (04:00)
[2018-11-15] MEDS: MAGNESIUM OXIDE 400 MG TABLET PO SCH ×2 (06:25→18:24)
[2018-11-15] MEDS: methylPREDNISolone SOD SUCC PF 125 MG/2 ML VIAL. IV SCH ×3 (06:25→21:10)
[2018-11-15 06:35] VITALS: BP 139/92
[2018-11-15] MEDS: BUDESONIDE 0.5 MG/2 ML NEBU. NEB SCH ×2 (07:22→21:36)
[2018-11-15] MEDS: IPRATRPIUM/ALBUTEROL 0.5/2.5MG 3 ML NEBU. NEB SCH ×4 (07:23→21:36)
[2018-11-15] MEDS: ALBUTEROL SULFATE 2.5 MG/3 ML NEBU. NEB SCH ×2 (07:26→07:27)
[2018-11-15] MEDS: PANTOPRAZOLE 40 MG TABLET.DR. PO SCH (08:28)
[2018-11-15] MEDS: metFORMIN 500 MG TABLET PO SCH ×2 (08:29→17:14)
[2018-11-15] MEDS: AZITHROMYCIN 250 MG TABLET. PO SCH (08:29)
[2018-11-15] MEDS: LOSARTAN POTASSIUM 50 MG TABLET. PO SCH (08:33)
[2018-11-15] MEDS: hydroCHLOROthiazide 25 MG TABLET PO SCH (08:34)
[2018-11-15] MEDS: INSULIN LISPRO 300 UNITS/3 ML INSULN.PEN. SQ SCH ×4 (08:36→21:16)
--- NOTE | 2018-11-15 10:37 | PDOC ---
PROGRESS NOTES History of Present Illness History of Present Illness VTE Prophylaxis Ordered VTE Prophylaxis Devices: Yes VTE Pharmacological Prophylaxi: Yes Assessment/Plan Assessment/Plan IMPRESSION 1. Acute hypoxic resp failure 2. acute exac of chronic asthma/// copd ///With bronchospasm 3. leukocytosis 4. SIRS 5. lactic acidosis 6. remote tobacco abuse x 30 yrs plan emperic iv antibiotics iv steroid taper 100mg solumedrol q 8 hrs dvt prophylaxis, lovenox budesonide 0.5 mg bid nebulizer singulair 10mg po q hs o2 support zithromax, iv rocephin pulm consult 39 min pt exam, chart review, > 50% of time spent with exam, chart review, pt care coordination Vitals Vitals Vital Signs Date Time Temp Pulse Resp B/P (MAP) Pulse Ox O2 Delivery O2 Flow Rate FiO2 11/15/18 08:34 89 166/73 11/15/18 07:23 97 Nasal Cannula 0.5 11/15/18 06:35 98.6 14 98.6 Physical Exam General: Alert, Oriented X3, Cooperative, No acute distress Heart: Regular rate, Normal S1, Normal S2 Lungs: Clear, Wheezing Abdomen: Normal bowel sounds, Soft, No tenderness Extremities: No cyanosis, No tenderness/swelling Skin: No rashes Labs LABS Laboratory Tests Test 11/14/18 11:10 11/14/18 16:22 11/14/18 20:12 11/15/18 07:55 Glucose (Fingerstick) 219 mg/dL (70-99) 173 mg/dL (70-99) 226 mg/dL (70-99) 226 mg/dL (70-99) Test 11/15/18 08:15 Magnesium Level 1.8 mg/dL (1.8-2.4) Assessment and Plan Assessmemt and Plan Problems Medical Problems: (1) RLL pneumonia Status: Acute Comment Review of Relevant I have reviewed the following items maxi (where applicable) has been applied. Labs Laboratory Tests Test 11/13/18 17:10 11/13/18 18:17 11/13/18 19:04 11/13/18 20:08 White Blood Count 13.8 x10^3/uL (4.0-11.0) Red Blood Count 4.32 x10^6/uL (3.50-5.40) Hemoglobin 11.5 g/dL (12.0-15.5) Hematocrit 35.2 % (36.0-47.0) Mean Corpuscular Volume 82 fL (79-100) Mean Corpuscular Hemoglobin 27 pg (25-35) Mean Corpuscular Hemoglobin Concent 33 g/dL (31-37) Red Cell Distribution Width 14.8 % (11.5-14.5) Platelet Count 302 x10^3/uL (140-400) Neutrophils (%) (Auto) 76 % (31-73) Lymphocytes (%) (Auto) 18 % (24-48) Monocytes (%) (Auto) 4 % (0-9) Eosinophils (%) (Auto) 1 % (0-3) Basophils (%) (Auto) 1 % (0-3) Neutrophils # (Auto) 10.4 x10^3/uL (1.8-7.7) Lymphocytes # (Auto) 2.5 x10^3/uL (1.0-4.8) Monocytes # (Auto) 0.5 x10^3/uL (0.0-1.1) Eosinophils # (Auto) 0.2 x10^3/uL (0.0-0.7) Basophils # (Auto) 0.1 x10^3/uL (0.0-0.2) D-Dimer (Lis) 0.35 ug/mlFEU (0.00-0.50) Sodium Level 140 mmol/L (136-145) Potassium Level 3.3 mmol/L (3.5-5.1) Chloride Level 100 mmol/L (98-107) Carbon Dioxide Level 28 mmol/L (21-32) Anion Gap 12 (6-14) Blood Urea Nitrogen 9 mg/dL (7-20) Creatinine 0.7 mg/dL (0.6-1.0) Estimated GFR (Cockcroft-Gault) 83.5 BUN/Creatinine Ratio 13 (6-20) Glucose Level 112 mg/dL (70-99) Calcium Level 9.3 mg/dL (8.5-10.1) Magnesium Level 1.4 mg/dL (1.8-2.4) Total Bilirubin 0.3 mg/dL (0.2-1.0) Aspartate Amino Transf (AST/SGOT) 14 U/L (15-37) Alanine Aminotransferase (ALT/SGPT) 16 U/L (14-59) Alkaline Phosphatase 55 U/L (46-116) Troponin I Quantitative < 0.017 ng/mL (0.000-0.055) Total Protein 7.9 g/dL (6.4-8.2) Albumin 3.3 g/dL (3.4-5.0) Albumin/Globulin Ratio 0.7 (1.0-1.7) Urine Collection Type Void Urine Color Straw Urine Clarity Clear Urine pH 6.5 Urine Specific [place] <=1.005 Urine Protein Negative mg/dL (NEG-TRACE) Urine Glucose (UA) Negative mg/dL (NEG) Urine Ketones (Stick) Negative mg/dL (NEG) Urine Blood Trace (NEG) Urine Nitrite Negative (NEG) Urine Bilirubin Negative (NEG) Urine Urobilinogen Dipstick 0.2 mg/dL (0.2 mg/dL) Urine Leukocyte Esterase Negative (NEG) Urine RBC Rare /HPF (0-2) Urine WBC 0 /HPF (0-4) Urine Squamous Epithelial Cells Occ /LPF Urine Bacteria 0 /HPF (0-FEW) Group A Streptococcus Rapid Negative (NEGATIVE) Lactic Acid Level 4.0 mmol/L (0.4-2.0) Test 11/13/18 21:50 11/13/18 22:10 11/14/18 05:40 11/14/18 07:10 Glucose (Fingerstick) 261 mg/dL (70-99) 189 mg/dL (70-99) Lactic Acid Level 3.2 mmol/L (0.4-2.0) White Blood Count 11.7 x10^3/uL (4.0-11.0) Red Blood Count 4.47 x10^6/uL (3.50-5.40) Hemoglobin 11.8 g/dL (12.0-15.5) Hematocrit 36.4 % (36.0-47.0) Mean Corpuscular Volume 82 fL (79-100) Mean Corpuscular Hemoglobin 26 pg (25-35) Mean Corpuscular Hemoglobin Concent 32 g/dL (31-37) Red Cell Distribution Width 15.2 % (11.5-14.5) Platelet Count 330 x10^3/uL (140-400) Neutrophils (%) (Auto) 89 % (31-73) Lymphocytes (%) (Auto) 10 % (24-48) Monocytes (%) (Auto) 1 % (0-9) Eosinophils (%) (Auto) 0 % (0-3) Basophils (%) (Auto) 0 % (0-3) Neutrophils # (Auto) 10.3 x10^3/uL (1.8-7.7) Lymphocytes # (Auto) 1.2 x10^3/uL (1.0-4.8) Monocytes # (Auto) 0.1 x10^3/uL (0.0-1.1) Eosinophils # (Auto) 0.0 x10^3/uL (0.0-0.7) Basophils # (Auto) 0.0 x10^3/uL (0.0-0.2) Segmented Neutrophils % 83 % (35-66) Band Neutrophils % 1 % (0-9) Lymphocytes % 15 % (24-48) Monocytes % 1 % (0-10) Platelet Estimate Adequate (ADEQUATE) Sodium Level 142 mmol/L (136-145) Potassium Level 3.9 mmol/L (3.5-5.1) Chloride Level 102 mmol/L (98-107) Carbon Dioxide Level 26 mmol/L (21-32) Anion Gap 14 (6-14) Blood Urea Nitrogen 8 mg/dL (7-20) Creatinine 0.7 mg/dL (0.6-1.0) Estimated GFR (Cockcroft-Gault) 83.5 BUN/Creatinine Ratio 11 (6-20) Glucose Level 212 mg/dL (70-99) Calcium Level 9.2 mg/dL (8.5-10.1) Total Bilirubin 0.3 mg/dL (0.2-1.0) Aspartate Amino Transf (AST/SGOT) 12 U/L (15-37) Alanine Aminotransferase (ALT/SGPT) 15 U/L (14-59) Alkaline Phosphatase 62 U/L (46-116) Total Protein 8.2 g/dL (6.4-8.2) Albumin 3.3 g/dL (3.4-5.0) Albumin/Globulin Ratio 0.7 (1.0-1.7) Test 11/14/18 11:10 11/14/18 16:22 11/14/18 20:12 11/15/18 07:55 Glucose (Fingerstick) 219 mg/dL (70-99) 173 mg/dL (70-99) 226 mg/dL (70-99) 226 mg/dL (70-99) Test 11/15/18 08:15 Magnesium Level 1.8 mg/dL (1.8-2.4) Laboratory Tests Test 11/14/18 11:10 11/14/18 16:22 11/14/18 20:12 11/15/18 07:55 Glucose (Fingerstick) 219 mg/dL (70-99) 173 mg/dL (70-99) 226 mg/dL (70-99) 226 mg/dL (70-99) Test 11/15/18 08:15 Magnesium Level 1.8 mg/dL (1.8-2.4) Microbiology 11/13/18 Blood Culture - Preliminary, Resulted NO GROWTH AFTER 1 DAY Medications Current Medications Albuterol/ Ipratropium (Duoneb) 3 ml 1X ONCE NEB Last administered on 11/13/18at 16:54; Start 11/13/18 at 17:00; Stop 11/13/18 at 17:01; Status DC Methylprednisolone Sodium Succinate (SOLU-Medrol 125MG VIAL) 125 mg 1X ONCE IV Last administered on 11/13/18at 17:10; Start 11/13/18 at 17:00; Stop 11/13/18 at 17:01; Status DC Albuterol/ Ipratropium (Duoneb) 3 ml 1X ONCE NEB Last administered on 11/13/18at 17:50; Start 11/13/18 at 17:45; Stop 11/13/18 at 17:46; Status DC Magnesium Sulfate 50 ml @ 25 mls/hr 1X ONCE IV Last administered on 11/13/18at 19:27; Start 11/13/18 at 18:15; Stop 11/13/18 at 20:14; Status DC Ceftriaxone Sodium (Rocephin) 1 gm 1X ONCE IVP Last administered on 11/13/18at 19:27; Start 11/13/18 at 18:45; Stop 11/13/18 at 18:46; Status DC Azithromycin 250 ml @ 250 mls/hr 1X ONCE IV Last administered on 11/13/18at 19:26; Start 11/13/18 at 18:45; Stop 11/13/18 at 19:44; Status DC Acetaminophen (Tylenol) 650 mg PRN Q4HRS PRN PO FEVER Last administered on 11/13/18 22:34; Start 11/13/18 at 19:30; Stop 11/14/18 at 11:45; Status DC Albuterol/ Ipratropium (Duoneb) 3 ml RTQID NEB Last administered on 11/13/18at 19:51; Start 11/13/18 at 20:00; Stop 11/13/18 at 20:43; Status DC Albuterol Sulfate (Ventolin Neb Soln) 2.5 mg PRN Q2HRS PRN INH shorntess of breath; Start 11/13/18 at 20:15 Hydrochlorothiazide (Hydrodiuril) 25 mg DAILY PO Last administered on 11/15/18 08:34; Start 11/14/18 at 09:00 Losartan Potassium (Cozaar) 50 mg DAILY PO Last administered on 11/15/18 08:34; Start 11/14/18 at 09:00 Non-Formulary Medication (Budesonide/ Formoterol Fumarate (Symbicort 160-4.5 Mcg Inhaler)) 2 puff BID IH ; Start 11/13/18 at 21:00; Status UNV Pantoprazole Sodium (Protonix) 40 mg DAILYAC PO Last administered on 11/15/18 08:34; Start 11/14/18 at 07:30 Metformin HCl (Glucophage) 500 mg BIDWMEALS PO Last administered on 11/15/18 08:34; Start 11/14/18 at 08:00 Prednisone (Prednisone) 20 mg DAILY PO Last administered on 11/14/18 08:41; Start 11/14/18 at 09:00; Stop 11/14/18 at 11:32; Status DC Potassium Chloride (Klor-Con) 40 meq 1X ONCE PO Last administered on 11/13/18 21:54; Start 11/13/18 at 20:15; Stop 11/13/18 at 20:38; Status DC Insulin Human Lispro (HumaLOG) 0-7 UNITS TIDWMEALHC SQ Last administered on 11/15/18 08:36; Start 11/13/18 at 21:00 Dextrose (Dextrose 50%-Water Syringe) 12.5 gm PRN Q15MIN PRN IV SEE COMMENTS; Start 11/13/18 at 20:15; Status Cancel Dextrose 250 ml PRN Q15MIN PRN IV SEE COMMENTS; Start 11/13/18 at 20:15 Budesonide (Pulmicort) 0.5 mg RTBID NEB Last administered on 11/14/18at 07:51; Start 11/14/18 at 08:00; Stop 11/14/18 at 13:07; Status DC Albuterol Sulfate (Ventolin Neb Soln) 2.5 mg Q6HRS NEB Last administered on 11/14/18at 07:51; Start 11/14/18 at 00:00 Sodium Chloride 500 ml @ 500 mls/hr 1X ONCE IV Last administered on 11/13/18at 21:41; Start 11/13/18 at 22:00; Stop 11/13/18 at 22:59; Status DC Ceftriaxone Sodium (Rocephin) 1 gm Q24H IVP Last administered on 11/14/18at 16:28; Start 11/14/18 at 17:00 Enoxaparin Sodium (Lovenox 40mg Syringe) 40 mg Q24H SQ Last administered on 11/14/18at 12:10; Start 11/14/18 at 11:00 Montelukast Sodium (Singulair) 10 mg QHS PO Last administered on 11/14/18at 21:44; Start 11/14/18 at 21:00 Azithromycin (Zithromax) 250 mg DAILY PO Last administered on 11/15/18at 08:34; Start 11/15/18 at 09:00 Methylprednisolone Sodium Succinate (SOLU-Medrol 125MG VIAL) 100 mg Q8HRS IV Last administered on 11/15/18at 06:25; Start 11/14/18 at 14:00 Sodium Chloride (Normal Saline Flush) 3 ml QSHIFT PRN IV AFTER MEDS AND BLOOD DRAWS; Start 11/14/18 at 11:45 Sodium Chloride 1,000 ml @ 100 mls/hr Q10H IV Last administered on 11/15/18at 01:23; Start 11/14/18 at 11:35 Ondansetron HCl (Zofran) 4 mg PRN Q4HRS PRN IV NAUSEA/VOMITING; Start 11/14/18 at 11:45 Acetaminophen (Tylenol) 650 mg PRN Q4HRS PRN PO TEMP OVER 100.4F OR MILD PAIN; Start 11/14/18 at 11:45 Al Hydroxide/Mg Hydroxide (Mylanta Plus Xs) 30 ml PRN DAILY PRN PO HEARTBURN / GAS; Start 11/14/18 at 11:45 Clonidine HCl (Catapres) 0.1 mg PRN Q6HRS PRN PO SBP>160 OR DBP>90; Start 11/14/18 at 11:45 Docusate Sodium (Colace) 100 mg PRN BID PRN PO CONSTIPATION; Start 11/14/18 at 11:45 Albuterol/ Ipratropium (Duoneb) 3 ml Q4HRS W/A NEB Last administered on 11/15/18at 07:23; Start 11/14/18 at 12:00 Guaifenesin (Robitussin) 200 mg PRN Q4HRS PRN PO COUGH; Start 11/14/18 at 11:45 Magnesium Oxide (Magnesium Oxide) 400 mg [id number] PO Last administered on 11/15/18at 06:25; Start 11/14/18 at 12:00 Budesonide (Pulmicort) 0.5 mg RTBID NEB Last administered on 11/15/18at 07:23; Start 11/14/18 at 20:00 Diphenhydramine HCl (Benadryl) 25 mg 1X ONCE PO Last administered on 11/15/18at 03:55; Start 11/15/18 at 04:00; Stop 11/15/18 at 04:01; Status DC Active Scripts Active Doxycycline Hyclate 100 Mg Tablet 100 Mg PO BID Medrol (Methylprednisolone) 4 Mg Tab.ds.pk 1 Pkg PO UD 6 Days Reported Hydrochlorothiazide Tablet (Hydrochlorothiazide) 25 Mg Tablet 1 Tab PO DAILY Spiriva (Tiotropium [place]) 18 Mcg Cap.w.dev 1 Cap IH DAILY Proventil Hfa Inhaler (Albuterol Sulfate) 6.7 Gm Hfa.aer.ad 2 Puff IH QID Symbicort 160-4.5 Mcg Inhaler (Budesonide/Formoterol Fumarate) 10.2 Gm Hfa.aer.ad 2 Puff IH BID Metformin Hcl 500 Mg Tablet 1 Tab PO BID Losartan Potassium 50 Mg Tablet 1 Tab PO DAILY Nexium Capsule (Esomeprazole Magnesium) 40 Mg Capsule.dr 1 Cap PO DAILY Vitals/I & O Vital Sign - Last 24 Hours 11/14/18 11/14/18 11/14/18 11/14/18 10:42 13:53 13:55 15:01 Temp 97.7 97.9 97.7 97.9 Pulse 84 85 Resp 18 18 B/P (MAP) 134/64 (87) 148/78 (101) Pulse Ox 94 96 O2 Delivery Nasal Cannula Room Air Nasal Cannula Nasal Cannula O2 Flow Rate 2.0 0.5 2.0 11/14/18 11/14/18 11/14/18 11/14/18 19:00 20:00 21:11 21:12 Temp 98.3 98.3 Pulse 80 Resp 18 B/P (MAP) 150/76 (100) Pulse Ox 97 97 97 O2 Delivery Nasal Cannula Nasal Cannula Room Air Room Air O2 Flow Rate 1.0 1.0 0.5 0.5 11/14/18 11/15/18 11/15/18 11/15/18 23:06 03:00 06:35 07:23 Temp 98.2 97.8 98.6 98.2 97.8 98.6 Pulse 79 85 75 Resp 19 17 14 B/P (MAP) 115/61 (79) 155/60 (91) 139/92 (108) Pulse Ox 96 95 93 97 O2 Delivery Nasal Cannula Room Air Room Air Nasal Cannula O2 Flow Rate 1.0 0.5 11/15/18 08:34 Pulse 89 B/P (MAP) 166/73 Intake and Output 11/14/18 11/14/18 11/15/18 15:00 23:00 07:00 Intake Total 600 ml 300 ml 1300 ml Balance 600 ml 300 ml 1300 ml LILY HARDY MD Nov 15, 2018 10:37
[2018-11-15 11:00] VITALS: BP 169/79
--- NOTE | 2018-11-15 11:14 | PDOC ---
PULMONARY PROGRESS NOTES Subjective NO SOA Vitals Vital Signs Date Time Temp Pulse Resp B/P (MAP) Pulse Ox O2 Delivery O2 Flow Rate FiO2 11/15/18 08:34 89 166/73 11/15/18 07:23 97 Nasal Cannula 0.5 11/15/18 06:35 98.6 14 98.6 General: Alert, No acute distress Lungs: Wheezing (faint) Cardiovascular: S1, S2 Abdomen: Soft Extremities: No Edema Labs Laboratory Tests Test 11/13/18 17:10 11/13/18 18:17 11/13/18 19:04 11/13/18 20:08 White Blood Count 13.8 x10^3/uL (4.0-11.0) Red Blood Count 4.32 x10^6/uL (3.50-5.40) Hemoglobin 11.5 g/dL (12.0-15.5) Hematocrit 35.2 % (36.0-47.0) Mean Corpuscular Volume 82 fL (79-100) Mean Corpuscular Hemoglobin 27 pg (25-35) Mean Corpuscular Hemoglobin Concent 33 g/dL (31-37) Red Cell Distribution Width 14.8 % (11.5-14.5) Platelet Count 302 x10^3/uL (140-400) Neutrophils (%) (Auto) 76 % (31-73) Lymphocytes (%) (Auto) 18 % (24-48) Monocytes (%) (Auto) 4 % (0-9) Eosinophils (%) (Auto) 1 % (0-3) Basophils (%) (Auto) 1 % (0-3) Neutrophils # (Auto) 10.4 x10^3/uL (1.8-7.7) Lymphocytes # (Auto) 2.5 x10^3/uL (1.0-4.8) Monocytes # (Auto) 0.5 x10^3/uL (0.0-1.1) Eosinophils # (Auto) 0.2 x10^3/uL (0.0-0.7) Basophils # (Auto) 0.1 x10^3/uL (0.0-0.2) D-Dimer (Lis) 0.35 ug/mlFEU (0.00-0.50) Sodium Level 140 mmol/L (136-145) Potassium Level 3.3 mmol/L (3.5-5.1) Chloride Level 100 mmol/L (98-107) Carbon Dioxide Level 28 mmol/L (21-32) Anion Gap 12 (6-14) Blood Urea Nitrogen 9 mg/dL (7-20) Creatinine 0.7 mg/dL (0.6-1.0) Estimated GFR (Cockcroft-Gault) 83.5 BUN/Creatinine Ratio 13 (6-20) Glucose Level 112 mg/dL (70-99) Calcium Level 9.3 mg/dL (8.5-10.1) Magnesium Level 1.4 mg/dL (1.8-2.4) Total Bilirubin 0.3 mg/dL (0.2-1.0) Aspartate Amino Transf (AST/SGOT) 14 U/L (15-37) Alanine Aminotransferase (ALT/SGPT) 16 U/L (14-59) Alkaline Phosphatase 55 U/L (46-116) Troponin I Quantitative < 0.017 ng/mL (0.000-0.055) Total Protein 7.9 g/dL (6.4-8.2) Albumin 3.3 g/dL (3.4-5.0) Albumin/Globulin Ratio 0.7 (1.0-1.7) Urine Collection Type Void Urine Color Straw Urine Clarity Clear Urine pH 6.5 Urine Specific [place] <=1.005 Urine Protein Negative mg/dL (NEG-TRACE) Urine Glucose (UA) Negative mg/dL (NEG) Urine Ketones (Stick) Negative mg/dL (NEG) Urine Blood Trace (NEG) Urine Nitrite Negative (NEG) Urine Bilirubin Negative (NEG) Urine Urobilinogen Dipstick 0.2 mg/dL (0.2 mg/dL) Urine Leukocyte Esterase Negative (NEG) Urine RBC Rare /HPF (0-2) Urine WBC 0 /HPF (0-4) Urine Squamous Epithelial Cells Occ /LPF Urine Bacteria 0 /HPF (0-FEW) Group A Streptococcus Rapid Negative (NEGATIVE) Lactic Acid Level 4.0 mmol/L (0.4-2.0) Test 11/13/18 21:50 11/13/18 22:10 11/14/18 05:40 11/14/18 07:10 Glucose (Fingerstick) 261 mg/dL (70-99) 189 mg/dL (70-99) Lactic Acid Level 3.2 mmol/L (0.4-2.0) White Blood Count 11.7 x10^3/uL (4.0-11.0) Red Blood Count 4.47 x10^6/uL (3.50-5.40) Hemoglobin 11.8 g/dL (12.0-15.5) Hematocrit 36.4 % (36.0-47.0) Mean Corpuscular Volume 82 fL (79-100) Mean Corpuscular Hemoglobin 26 pg (25-35) Mean Corpuscular Hemoglobin Concent 32 g/dL (31-37) Red Cell Distribution Width 15.2 % (11.5-14.5) Platelet Count 330 x10^3/uL (140-400) Neutrophils (%) (Auto) 89 % (31-73) Lymphocytes (%) (Auto) 10 % (24-48) Monocytes (%) (Auto) 1 % (0-9) Eosinophils (%) (Auto) 0 % (0-3) Basophils (%) (Auto) 0 % (0-3) Neutrophils # (Auto) 10.3 x10^3/uL (1.8-7.7) Lymphocytes # (Auto) 1.2 x10^3/uL (1.0-4.8) Monocytes # (Auto) 0.1 x10^3/uL (0.0-1.1) Eosinophils # (Auto) 0.0 x10^3/uL (0.0-0.7) Basophils # (Auto) 0.0 x10^3/uL (0.0-0.2) Segmented Neutrophils % 83 % (35-66) Band Neutrophils % 1 % (0-9) Lymphocytes % 15 % (24-48) Monocytes % 1 % (0-10) Platelet Estimate Adequate (ADEQUATE) Sodium Level 142 mmol/L (136-145) Potassium Level 3.9 mmol/L (3.5-5.1) Chloride Level 102 mmol/L (98-107) Carbon Dioxide Level 26 mmol/L (21-32) Anion Gap 14 (6-14) Blood Urea Nitrogen 8 mg/dL (7-20) Creatinine 0.7 mg/dL (0.6-1.0) Estimated GFR (Cockcroft-Gault) 83.5 BUN/Creatinine Ratio 11 (6-20) Glucose Level 212 mg/dL (70-99) Calcium Level 9.2 mg/dL (8.5-10.1) Total Bilirubin 0.3 mg/dL (0.2-1.0) Aspartate Amino Transf (AST/SGOT) 12 U/L (15-37) Alanine Aminotransferase (ALT/SGPT) 15 U/L (14-59) Alkaline Phosphatase 62 U/L (46-116) Total Protein 8.2 g/dL (6.4-8.2) Albumin 3.3 g/dL (3.4-5.0) Albumin/Globulin Ratio 0.7 (1.0-1.7) Test 11/14/18 11:10 11/14/18 16:22 11/14/18 20:12 11/15/18 07:55 Glucose (Fingerstick) 219 mg/dL (70-99) 173 mg/dL (70-99) 226 mg/dL (70-99) 226 mg/dL (70-99) Test 11/15/18 08:15 Magnesium Level 1.8 mg/dL (1.8-2.4) Laboratory Tests Test 11/14/18 16:22 11/14/18 20:12 11/15/18 07:55 11/15/18 08:15 Glucose (Fingerstick) 173 mg/dL (70-99) 226 mg/dL (70-99) 226 mg/dL (70-99) Magnesium Level 1.8 mg/dL (1.8-2.4) Medications Active Scripts Medications Dose Route/Sig Max Daily Dose Days Date Category Doxycycline Hyclate 100 Mg Tablet 100 Mg PO BID 10/02/14 Rx Medrol (Methylprednisolone) 4 Mg Tab.ds.pk 1 Pkg PO UD 6 10/02/14 Rx Hydrochlorothiazide Tablet (Hydrochlorothiazide) 25 Mg Tablet 1 Tab PO DAILY 09/30/14 Reported Spiriva (Tiotropium [place]) 18 Mcg Cap.w.dev 1 Cap IH DAILY 09/30/14 Reported Proventil Hfa Inhaler (Albuterol Sulfate) 6.7 Gm Hfa.aer.ad 2 Puff IH QID 09/30/14 Reported Symbicort 160-4.5 Mcg Inhaler (Budesonide/Formoterol Fumarate) 10.2 Gm Hfa.aer.ad 2 Puff IH BID 09/30/14 Reported Metformin Hcl 500 Mg Tablet 1 Tab PO BID 09/30/14 Reported Losartan Potassium 50 Mg Tablet 1 Tab PO DAILY 09/30/14 Reported Nexium Capsule (Esomeprazole Magnesium) 40 Mg Capsule. 1 Cap PO DAILY 09/30/14 Reported Impression . 1. Dyspnea with acute hypoxic respiratory failure secondary to acute asthma exacerbation. 2. Acute bronchitis. 3. Mild lower extremity edema. We will obtain echocardiogram to rule out any left ventricular dysfunction. 4. Normal D-dimer, no workup needed for thromboembolic disease. Plan . RECOMMENDATIONS: 1. Continue with present DuoNebs. 2. Pulmicort. 3. Continue IV steroids. 4. Continue antibiotics. 5. The patient will continue her bronchodilators including Symbicort and anticholinergic inhaler as an outpatient with p.r.n. prednisone. 6. Discussed with the daughter 7. DVT prophylaxis with Lovenox. FLORA PAIGE MD Nov 15, 2018 11:14
[2018-11-15] MEDS: ENOXAPARIN 40 MG/0.4 ML SYRINGE. SQ SCH (12:00)
[2018-11-15 14:47] VITALS: BP 161/84
--- NOTE | 2018-11-15 15:36 | NUR ---
SW following pt. No PT needs indicated at this time. SW will be available pending dc needs.
[2018-11-15] MEDS: cefTRIAXone IV Push 1 GM VIAL. IVP SCH (17:14)
[2018-11-15 19:00] VITALS: BP 156/87
[2018-11-15] MEDS: MONTELUKAST SODIUM 10 MG TABLET. PO SCH (21:10)
[2018-11-15] MEDS: LACTOBACILLUS RHAMNOSUS GG 1 CAPSULE. PO SCH (21:10)
[2018-11-15 23:00] VITALS: BP 139/71
[2018-11-16 03:00] VITALS: BP 164/78
[2018-11-16] MEDS: IV NORMAL SALINE 1000ML BAG 1,000 ML IV SCH ×2 (04:08→13:35)
[2018-11-16 06:07] LABS: BASO % 0 % (0-3); EOS % 0 % (0-3); HEMATOCRIT 35.5 % (36.0-47.0); HEMOGLOBIN 11.6 g/dL (12.0-15.5); LYMPH # 1.2 x10^3/uL (1.0-4.8); LYMPH % 10 % (24-48); MEAN CORPUSCULAR HEMOGLOBIN 26 pg (25-35); MEAN CORPUSCULAR HGB CONC 33 g/dL (31-37); MEAN CORPUSCULAR VOLUME 81 fL (79-100); MONO # 0.3 x10^3/uL (0.0-1.1); MONO % 2 % (0-9); NEUT # 11.2 x10^3/uL (1.8-7.7); NEUT % 88 % (31-73); PLATELET COUNT 343 x10^3/uL (140-400); RED BLOOD COUNT 4.41 x10^6/uL (3.50-5.40); RED CELL DISTRIBUTION WIDTH 14.8 % (11.5-14.5); WHITE BLOOD COUNT 12.7 x10^3/uL (4.0-11.0)
[2018-11-16] MEDS: methylPREDNISolone SOD SUCC PF 125 MG/2 ML VIAL. IV SCH (06:11)
[2018-11-16 06:23] LABS: ALBUMIN 3.1 g/dL (3.4-5.0); ALBUMIN/GLOBULIN RATIO 0.7 (1.0-1.7); CALCIUM 8.6 mg/dL (8.5-10.1); CREATININE 0.7 mg/dL (0.6-1.0); GFR 83.5; TOTAL BILIRUBIN 0.2 mg/dL (0.2-1.0); TOTAL PROTEIN 7.3 g/dL (6.4-8.2)
[2018-11-16 06:28] LABS: POTASSIUM 2.8 mmol/L (3.5-5.1)
[2018-11-16] MEDS: MAGNESIUM OXIDE 400 MG TABLET PO SCH ×2 (06:34→08:47)
[2018-11-16 07:00] VITALS: BP 163/78
--- NOTE | 2018-11-16 07:19 | NUR ---
Critical lab values called, potassium 2.8. This nurse paged the doctor product safety consultant at [phone]. The doctor had not called back by the time the nurse was going home. This nurse gave the day shift nurse patient report including the critical lab values, and the exact time the doctor was paged. The day shift nurse will page the doctor again.
[2018-11-16] MEDS: BUDESONIDE 0.5 MG/2 ML NEBU. NEB SCH (07:48)
[2018-11-16] MEDS: IPRATRPIUM/ALBUTEROL 0.5/2.5MG 3 ML NEBU. NEB SCH ×3 (07:48→15:31)
[2018-11-16] MEDS: POTASSIUM CHLORIDE 10MEQ 100 ML IV SCH ×4 (08:47→12:00)
[2018-11-16] MEDS: LACTOBACILLUS RHAMNOSUS GG 1 CAPSULE. PO SCH (08:47)
[2018-11-16] MEDS: LOSARTAN POTASSIUM 50 MG TABLET. PO SCH (08:47)
[2018-11-16] MEDS: hydroCHLOROthiazide 25 MG TABLET PO SCH (08:47)
[2018-11-16] MEDS: AZITHROMYCIN 250 MG TABLET. PO SCH (08:48)
[2018-11-16] MEDS: metFORMIN 500 MG TABLET PO SCH (08:48)
[2018-11-16] MEDS: PANTOPRAZOLE 40 MG TABLET.DR. PO SCH (08:48)
[2018-11-16] MEDS: INSULIN LISPRO 300 UNITS/3 ML INSULN.PEN. SQ SCH ×2 (08:57→13:12)
[2018-11-16] MEDS ORDERED: MAGNESIUM SULFATE 1GM 100 ML IV ONE (09:00)
[2018-11-16] MEDS ORDERED: POTASSIUM CHLORIDE 20 MEQ TABLET.ER. PO ONE ×2 (09:00→14:00)
--- NOTE | 2018-11-16 10:53 | PDOC ---
PULMONARY PROGRESS NOTES Subjective NO SOA Vitals Vital Signs Date Time Temp Pulse Resp B/P (MAP) Pulse Ox O2 Delivery O2 Flow Rate FiO2 11/16/18 08:57 77 163/78 11/16/18 08:00 Nasal Cannula 1.0 11/16/18 07:00 98.0 20 94 98.0 General: Alert, No acute distress Lungs: Wheezing (resolved) Cardiovascular: S1, S2 Abdomen: Soft Extremities: No Edema Labs Laboratory Tests Test 11/14/18 11:10 11/14/18 16:22 11/14/18 20:12 11/14/18 22:30 Glucose (Fingerstick) 219 mg/dL (70-99) 173 mg/dL (70-99) 226 mg/dL (70-99) Clostridium difficile Toxin B Gene Negative (Negative) Test 11/15/18 07:55 11/15/18 08:15 11/15/18 11:40 11/15/18 17:04 Glucose (Fingerstick) 226 mg/dL (70-99) 199 mg/dL (70-99) 223 mg/dL (70-99) Magnesium Level 1.8 mg/dL (1.8-2.4) Test 11/15/18 21:08 11/16/18 04:55 11/16/18 08:35 Glucose (Fingerstick) 270 mg/dL (70-99) 231 mg/dL (70-99) White Blood Count 12.7 x10^3/uL (4.0-11.0) Red Blood Count 4.41 x10^6/uL (3.50-5.40) Hemoglobin 11.6 g/dL (12.0-15.5) Hematocrit 35.5 % (36.0-47.0) Mean Corpuscular Volume 81 fL (79-100) Mean Corpuscular Hemoglobin 26 pg (25-35) Mean Corpuscular Hemoglobin Concent 33 g/dL (31-37) Red Cell Distribution Width 14.8 % (11.5-14.5) Platelet Count 343 x10^3/uL (140-400) Neutrophils (%) (Auto) 88 % (31-73) Lymphocytes (%) (Auto) 10 % (24-48) Monocytes (%) (Auto) 2 % (0-9) Eosinophils (%) (Auto) 0 % (0-3) Basophils (%) (Auto) 0 % (0-3) Neutrophils # (Auto) 11.2 x10^3/uL (1.8-7.7) Lymphocytes # (Auto) 1.2 x10^3/uL (1.0-4.8) Monocytes # (Auto) 0.3 x10^3/uL (0.0-1.1) Eosinophils # (Auto) 0.0 x10^3/uL (0.0-0.7) Basophils # (Auto) 0.0 x10^3/uL (0.0-0.2) Sodium Level 141 mmol/L (136-145) Potassium Level 2.8 mmol/L (3.5-5.1) Chloride Level 100 mmol/L (98-107) Carbon Dioxide Level 29 mmol/L (21-32) Anion Gap 12 (6-14) Blood Urea Nitrogen 13 mg/dL (7-20) Creatinine 0.7 mg/dL (0.6-1.0) Estimated GFR (Cockcroft-Gault) 83.5 BUN/Creatinine Ratio 19 (6-20) Glucose Level 235 mg/dL (70-99) Calcium Level 8.6 mg/dL (8.5-10.1) Magnesium Level 1.9 mg/dL (1.8-2.4) Total Bilirubin 0.2 mg/dL (0.2-1.0) Aspartate Amino Transf (AST/SGOT) 10 U/L (15-37) Alanine Aminotransferase (ALT/SGPT) 10 U/L (14-59) Alkaline Phosphatase 49 U/L (46-116) Total Protein 7.3 g/dL (6.4-8.2) Albumin 3.1 g/dL (3.4-5.0) Albumin/Globulin Ratio 0.7 (1.0-1.7) Laboratory Tests Test 11/15/18 11:40 11/15/18 17:04 11/15/18 21:08 11/16/18 04:55 Glucose (Fingerstick) 199 mg/dL (70-99) 223 mg/dL (70-99) 270 mg/dL (70-99) White Blood Count 12.7 x10^3/uL (4.0-11.0) Red Blood Count 4.41 x10^6/uL (3.50-5.40) Hemoglobin 11.6 g/dL (12.0-15.5) Hematocrit 35.5 % (36.0-47.0) Mean Corpuscular Volume 81 fL (79-100) Mean Corpuscular Hemoglobin 26 pg (25-35) Mean Corpuscular Hemoglobin Concent 33 g/dL (31-37) Red Cell Distribution Width 14.8 % (11.5-14.5) Platelet Count 343 x10^3/uL (140-400) Neutrophils (%) (Auto) 88 % (31-73) Lymphocytes (%) (Auto) 10 % (24-48) Monocytes (%) (Auto) 2 % (0-9) Eosinophils (%) (Auto) 0 % (0-3) Basophils (%) (Auto) 0 % (0-3) Neutrophils # (Auto) 11.2 x10^3/uL (1.8-7.7) Lymphocytes # (Auto) 1.2 x10^3/uL (1.0-4.8) Monocytes # (Auto) 0.3 x10^3/uL (0.0-1.1) Eosinophils # (Auto) 0.0 x10^3/uL (0.0-0.7) Basophils # (Auto) 0.0 x10^3/uL (0.0-0.2) Sodium Level 141 mmol/L (136-145) Potassium Level 2.8 mmol/L (3.5-5.1) Chloride Level 100 mmol/L (98-107) Carbon Dioxide Level 29 mmol/L (21-32) Anion Gap 12 (6-14) Blood Urea Nitrogen 13 mg/dL (7-20) Creatinine 0.7 mg/dL (0.6-1.0) Estimated GFR (Cockcroft-Gault) 83.5 BUN/Creatinine Ratio 19 (6-20) Glucose Level 235 mg/dL (70-99) Calcium Level 8.6 mg/dL (8.5-10.1) Magnesium Level 1.9 mg/dL (1.8-2.4) Total Bilirubin 0.2 mg/dL (0.2-1.0) Aspartate Amino Transf (AST/SGOT) 10 U/L (15-37) Alanine Aminotransferase (ALT/SGPT) 10 U/L (14-59) Alkaline Phosphatase 49 U/L (46-116) Total Protein 7.3 g/dL (6.4-8.2) Albumin 3.1 g/dL (3.4-5.0) Albumin/Globulin Ratio 0.7 (1.0-1.7) Test 11/16/18 08:35 Glucose (Fingerstick) 231 mg/dL (70-99) Medications Active Scripts Medications Dose Route/Sig Max Daily Dose Days Date Category Doxycycline Hyclate 100 Mg Tablet 100 Mg PO BID 10/02/14 Rx Medrol (Methylprednisolone) 4 Mg Tab.ds.pk 1 Pkg PO UD 6 10/02/14 Rx Hydrochlorothiazide Tablet (Hydrochlorothiazide) 25 Mg Tablet 1 Tab PO DAILY 09/30/14 Reported Spiriva (Tiotropium [place]) 18 Mcg Cap.w.dev 1 Cap IH DAILY 09/30/14 Reported Proventil Hfa Inhaler (Albuterol Sulfate) 6.7 Gm Hfa.aer.ad 2 Puff IH QID 09/30/14 Reported Symbicort 160-4.5 Mcg Inhaler (Budesonide/Formoterol Fumarate) 10.2 Gm Hfa.aer.ad 2 Puff IH BID 09/30/14 Reported Metformin Hcl 500 Mg Tablet 1 Tab PO BID 09/30/14 Reported Losartan Potassium 50 Mg Tablet 1 Tab PO DAILY 09/30/14 Reported Nexium Capsule (Esomeprazole Magnesium) 40 Mg Capsule.dr 1 Cap PO DAILY 09/30/14 Reported Impression . 1. Dyspnea with acute hypoxic respiratory failure secondary to acute asthma exacerbation. resolved. 2. Acute bronchitis. 3. Mild lower extremity edema. NL EF by echocardiogram 4. Normal D-dimer, no workup needed for thromboembolic disease. Plan . 1. Continue with present DuoNebs. 2. Pulmicort. 3. change to PO steroids. 4. Continue antibiotics. 5. The patient will continue her bronchodilators including Symbicort and anticholinergic inhaler as an outpatient 6. Discussed with the daughter 7. DVT prophylaxis with Lovenox. 8. dc rocephin, continue with PO Zithromax and dc home today after replacing FLORA OQUENDO MD Nov 16, 2018 10:53
[2018-11-16 11:00] VITALS: BP 160/86
--- NOTE | 2018-11-16 11:29 | PDOC ---
PROGRESS NOTES History of Present Illness History of Present Illness VTE Prophylaxis Ordered VTE Prophylaxis Devices: Yes VTE Pharmacological Prophylaxi: Yes discharge dx Assessment/Plan IMPRESSION 1. Acute hypoxic resp failure 2. acute exac of chronic asthma/// copd ///With bronchospasm 3. leukocytosis 4. SIRS 5. lactic acidosis 6. remote tobacco abuse x 30 yrs plan emperic iv antibiotics iv steroid taper 100mg solumedrol q 8 hrs dvt prophylaxis, lovenox budesonide 0.5 mg bid nebulizer singulair 10mg po q hs o2 support zithromax, iv rocephin pulm consult PO Zithromax and dc home today after replacing K, 30 mg prednisone po daily x 5 days, see pcp in 4 days 32 min pt exam, chart review d/c planning , > 50% of time spent with exam, chart review, pt care coordination Vitals Vitals Vital Signs Date Time Temp Pulse Resp B/P (MAP) Pulse Ox O2 Delivery O2 Flow Rate FiO2 11/16/18 11:00 98.0 71 20 160/86 (110) 94 Room Air 98.0 11/16/18 08:00 1.0 Physical Exam General: Alert, Oriented X3, Cooperative, No acute distress Heart: Regular rate, Normal S1, Normal S2 Lungs: Wheezing (resolved) Abdomen: Normal bowel sounds, Soft, No tenderness Extremities: No cyanosis, No tenderness/swelling Skin: No rashes Labs LABS Laboratory Tests Test 11/15/18 11:40 11/15/18 17:04 11/15/18 21:08 11/16/18 04:55 Glucose (Fingerstick) 199 mg/dL (70-99) 223 mg/dL (70-99) 270 mg/dL (70-99) White Blood Count 12.7 x10^3/uL (4.0-11.0) Red Blood Count 4.41 x10^6/uL (3.50-5.40) Hemoglobin 11.6 g/dL (12.0-15.5) Hematocrit 35.5 % (36.0-47.0) Mean Corpuscular Volume 81 fL (79-100) Mean Corpuscular Hemoglobin 26 pg (25-35) Mean Corpuscular Hemoglobin Concent 33 g/dL (31-37) Red Cell Distribution Width 14.8 % (11.5-14.5) Platelet Count 343 x10^3/uL (140-400) Neutrophils (%) (Auto) 88 % (31-73) Lymphocytes (%) (Auto) 10 % (24-48) Monocytes (%) (Auto) 2 % (0-9) Eosinophils (%) (Auto) 0 % (0-3) Basophils (%) (Auto) 0 % (0-3) Neutrophils # (Auto) 11.2 x10^3/uL (1.8-7.7) Lymphocytes # (Auto) 1.2 x10^3/uL (1.0-4.8) Monocytes # (Auto) 0.3 x10^3/uL (0.0-1.1) Eosinophils # (Auto) 0.0 x10^3/uL (0.0-0.7) Basophils # (Auto) 0.0 x10^3/uL (0.0-0.2) Sodium Level 141 mmol/L (136-145) Potassium Level 2.8 mmol/L (3.5-5.1) Chloride Level 100 mmol/L (98-107) Carbon Dioxide Level 29 mmol/L (21-32) Anion Gap 12 (6-14) Blood Urea Nitrogen 13 mg/dL (7-20) Creatinine 0.7 mg/dL (0.6-1.0) Estimated GFR (Cockcroft-Gault) 83.5 BUN/Creatinine Ratio 19 (6-20) Glucose Level 235 mg/dL (70-99) Calcium Level 8.6 mg/dL (8.5-10.1) Magnesium Level 1.9 mg/dL (1.8-2.4) Total Bilirubin 0.2 mg/dL (0.2-1.0) Aspartate Amino Transf (AST/SGOT) 10 U/L (15-37) Alanine Aminotransferase (ALT/SGPT) 10 U/L (14-59) Alkaline Phosphatase 49 U/L (46-116) Total Protein 7.3 g/dL (6.4-8.2) Albumin 3.1 g/dL (3.4-5.0) Albumin/Globulin Ratio 0.7 (1.0-1.7) Test 11/16/18 08:35 11/16/18 10:57 Glucose (Fingerstick) 231 mg/dL (70-99) 225 mg/dL (70-99) Assessment and Plan Assessmemt and Plan Problems Medical Problems: (1) RLL pneumonia Status: Acute Comment Review of Relevant I have reviewed the following items maxi (where applicable) has been applied. Labs Laboratory Tests Test 11/14/18 16:22 11/14/18 20:12 11/14/18 22:30 11/15/18 07:55 Glucose (Fingerstick) 173 mg/dL (70-99) 226 mg/dL (70-99) 226 mg/dL (70-99) Clostridium difficile Toxin B Gene Negative (Negative) Test 11/15/18 08:15 11/15/18 11:40 11/15/18 17:04 11/15/18 21:08 Magnesium Level 1.8 mg/dL (1.8-2.4) Glucose (Fingerstick) 199 mg/dL (70-99) 223 mg/dL (70-99) 270 mg/dL (70-99) Test 11/16/18 04:55 11/16/18 08:35 11/16/18 10:57 White Blood Count 12.7 x10^3/uL (4.0-11.0) Red Blood Count 4.41 x10^6/uL (3.50-5.40) Hemoglobin 11.6 g/dL (12.0-15.5) Hematocrit 35.5 % (36.0-47.0) Mean Corpuscular Volume 81 fL (79-100) Mean Corpuscular Hemoglobin 26 pg (25-35) Mean Corpuscular Hemoglobin Concent 33 g/dL (31-37) Red Cell Distribution Width 14.8 % (11.5-14.5) Platelet Count 343 x10^3/uL (140-400) Neutrophils (%) (Auto) 88 % (31-73) Lymphocytes (%) (Auto) 10 % (24-48) Monocytes (%) (Auto) 2 % (0-9) Eosinophils (%) (Auto) 0 % (0-3) Basophils (%) (Auto) 0 % (0-3) Neutrophils # (Auto) 11.2 x10^3/uL (1.8-7.7) Lymphocytes # (Auto) 1.2 x10^3/uL (1.0-4.8) Monocytes # (Auto) 0.3 x10^3/uL (0.0-1.1) Eosinophils # (Auto) 0.0 x10^3/uL (0.0-0.7) Basophils # (Auto) 0.0 x10^3/uL (0.0-0.2) Sodium Level 141 mmol/L (136-145) Potassium Level 2.8 mmol/L (3.5-5.1) Chloride Level 100 mmol/L (98-107) Carbon Dioxide Level 29 mmol/L (21-32) Anion Gap 12 (6-14) Blood Urea Nitrogen 13 mg/dL (7-20) Creatinine 0.7 mg/dL (0.6-1.0) Estimated GFR (Cockcroft-Gault) 83.5 BUN/Creatinine Ratio 19 (6-20) Glucose Level 235 mg/dL (70-99) Calcium Level 8.6 mg/dL (8.5-10.1) Magnesium Level 1.9 mg/dL (1.8-2.4) Total Bilirubin 0.2 mg/dL (0.2-1.0) Aspartate Amino Transf (AST/SGOT) 10 U/L (15-37) Alanine Aminotransferase (ALT/SGPT) 10 U/L (14-59) Alkaline Phosphatase 49 U/L (46-116) Total Protein 7.3 g/dL (6.4-8.2) Albumin 3.1 g/dL (3.4-5.0) Albumin/Globulin Ratio 0.7 (1.0-1.7) Glucose (Fingerstick) 231 mg/dL (70-99) 225 mg/dL (70-99) Laboratory Tests Test 11/15/18 11:40 11/15/18 17:04 11/15/18 21:08 11/16/18 04:55 Glucose (Fingerstick) 199 mg/dL (70-99) 223 mg/dL (70-99) 270 mg/dL (70-99) White Blood Count 12.7 x10^3/uL (4.0-11.0) Red Blood Count 4.41 x10^6/uL (3.50-5.40) Hemoglobin 11.6 g/dL (12.0-15.5) Hematocrit 35.5 % (36.0-47.0) Mean Corpuscular Volume 81 fL (79-100) Mean Corpuscular Hemoglobin 26 pg (25-35) Mean Corpuscular Hemoglobin Concent 33 g/dL (31-37) Red Cell Distribution Width 14.8 % (11.5-14.5) Platelet Count 343 x10^3/uL (140-400) Neutrophils (%) (Auto) 88 % (31-73) Lymphocytes (%) (Auto) 10 % (24-48) Monocytes (%) (Auto) 2 % (0-9) Eosinophils (%) (Auto) 0 % (0-3) Basophils (%) (Auto) 0 % (0-3) Neutrophils # (Auto) 11.2 x10^3/uL (1.8-7.7) Lymphocytes # (Auto) 1.2 x10^3/uL (1.0-4.8) Monocytes # (Auto) 0.3 x10^3/uL (0.0-1.1) Eosinophils # (Auto) 0.0 x10^3/uL (0.0-0.7) Basophils # (Auto) 0.0 x10^3/uL (0.0-0.2) Sodium Level 141 mmol/L (136-145) Potassium Level 2.8 mmol/L (3.5-5.1) Chloride Level 100 mmol/L (98-107) Carbon Dioxide Level 29 mmol/L (21-32) Anion Gap 12 (6-14) Blood Urea Nitrogen 13 mg/dL (7-20) Creatinine 0.7 mg/dL (0.6-1.0) Estimated GFR (Cockcroft-Gault) 83.5 BUN/Creatinine Ratio 19 (6-20) Glucose Level 235 mg/dL (70-99) Calcium Level 8.6 mg/dL (8.5-10.1) Magnesium Level 1.9 mg/dL (1.8-2.4) Total Bilirubin 0.2 mg/dL (0.2-1.0) Aspartate Amino Transf (AST/SGOT) 10 U/L (15-37) Alanine Aminotransferase (ALT/SGPT) 10 U/L (14-59) Alkaline Phosphatase 49 U/L (46-116) Total Protein 7.3 g/dL (6.4-8.2) Albumin 3.1 g/dL (3.4-5.0) Albumin/Globulin Ratio 0.7 (1.0-1.7) Test 11/16/18 08:35 11/16/18 10:57 Glucose (Fingerstick) 231 mg/dL (70-99) 225 mg/dL (70-99) Microbiology 11/13/18 Blood Culture - Preliminary, Resulted NO GROWTH AFTER 2 DAYS Medications Current Medications Albuterol/ Ipratropium (Duoneb) 3 ml 1X ONCE NEB Last administered on 11/13/18at 16:54; Start 11/13/18 at 17:00; Stop 11/13/18 at 17:01; Status DC Methylprednisolone Sodium Succinate (SOLU-Medrol 125MG VIAL) 125 mg 1X ONCE IV Last administered on 11/13/18at 17:10; Start 11/13/18 at 17:00; Stop 11/13/18 at 17:01; Status DC Albuterol/ Ipratropium (Duoneb) 3 ml 1X ONCE NEB Last administered on 11/13/18at 17:50; Start 11/13/18 at 17:45; Stop 11/13/18 at 17:46; Status DC Magnesium Sulfate 50 ml @ 25 mls/hr 1X ONCE IV Last administered on 11/13/18at 19:27; Start 11/13/18 at 18:15; Stop 11/13/18 at 20:14; Status DC Ceftriaxone Sodium (Rocephin) 1 gm 1X ONCE IVP Last administered on 11/13/18at 19:27; Start 11/13/18 at 18:45; Stop 11/13/18 at 18:46; Status DC Azithromycin 250 ml @ 250 mls/hr 1X ONCE IV Last administered on 11/13/18at 19:26; Start 11/13/18 at 18:45; Stop 11/13/18 at 19:44; Status DC Acetaminophen (Tylenol) 650 mg PRN Q4HRS PRN PO FEVER Last administered on 11/13/18at 22:34; Start 11/13/18 at 19:30; Stop 11/14/18 at 11:45; Status DC Albuterol/ Ipratropium (Duoneb) 3 ml RTQID NEB Last administered on 11/13/18 19:51; Start 11/13/18 at 20:00; Stop 11/13/18 at 20:43; Status DC Albuterol Sulfate (Ventolin Neb Soln) 2.5 mg PRN Q2HRS PRN INH shorntess of breath; Start 11/13/18 at 20:15 Hydrochlorothiazide (Hydrodiuril) 25 mg DAILY PO Last administered on 11/16/18 08:57; Start 11/14/18 at 09:00 Losartan Potassium (Cozaar) 50 mg DAILY PO Last administered on 11/16/18 08:57; Start 11/14/18 at 09:00 Non-Formulary Medication (Budesonide/ Formoterol Fumarate (Symbicort 160-4.5 Mcg Inhaler)) 2 puff BID IH ; Start 11/13/18 at 21:00; Status UNV Pantoprazole Sodium (Protonix) 40 mg DAILYAC PO Last administered on 11/16/18 08:57; Start 11/14/18 at 07:30 Metformin HCl (Glucophage) 500 mg BIDWMEALS PO Last administered on 11/16/18 08:57; Start 11/14/18 at 08:00 Prednisone (Prednisone) 20 mg DAILY PO Last administered on 11/14/18 08:41; Start 11/14/18 at 09:00; Stop 11/14/18 at 11:32; Status DC Potassium Chloride (Klor-Con) 40 meq 1X ONCE PO Last administered on 11/13/18 21:54; Start 11/13/18 at 20:15; Stop 11/13/18 at 20:38; Status DC Insulin Human Lispro (HumaLOG) 0-7 UNITS TIDWMEALHC SQ Last administered on 11/16/18 08:57; Start 11/13/18 at 21:00 Dextrose (Dextrose 50%-Water Syringe) 12.5 gm PRN Q15MIN PRN IV SEE COMMENTS; Start 11/13/18 at 20:15; Status Cancel Dextrose 250 ml PRN Q15MIN PRN IV SEE COMMENTS; Start 11/13/18 at 20:15 Budesonide (Pulmicort) 0.5 mg RTBID NEB Last administered on 11/14/18 07:51; Start 11/14/18 at 08:00; Stop 11/14/18 at 13:07; Status DC Albuterol Sulfate (Ventolin Neb Soln) 2.5 mg Q6HRS NEB Last administered on 11/14/18at 07:51; Start 11/14/18 at 00:00; Stop 11/15/18 at 13:33; Status DC Sodium Chloride 500 ml @ 500 mls/hr 1X ONCE IV Last administered on 11/13/18 21:41; Start 11/13/18 at 22:00; Stop 11/13/18 at 22:59; Status DC Ceftriaxone Sodium (Rocephin) 1 gm Q24H IVP Last administered on 11/15/18 17:15; Start 11/14/18 at 17:00 Enoxaparin Sodium (Lovenox 40mg Syringe) 40 mg Q24H SQ Last administered on 11/15/18at 12:00; Start 11/14/18 at 11:00 Montelukast Sodium (Singulair) 10 mg QHS PO Last administered on 11/15/18 21:16; Start 11/14/18 at 21:00 Azithromycin (Zithromax) 250 mg DAILY PO Last administered on 11/16/18 08:57; Start 11/15/18 at 09:00 Methylprednisolone Sodium Succinate (SOLU-Medrol 125MG VIAL) 100 mg Q8HRS IV Last administered on 11/16/18 06:15; Start 11/14/18 at 14:00; Stop 11/16/18 at 10:50; Status DC Sodium Chloride (Normal Saline Flush) 3 ml QSHIFT PRN IV AFTER MEDS AND BLOOD DRAWS; Start 11/14/18 at 11:45 Sodium Chloride 1,000 ml @ 100 mls/hr Q10H IV Last administered on 11/16/18at 04:08; Start 11/14/18 at 11:35 Ondansetron HCl (Zofran) 4 mg PRN Q4HRS PRN IV NAUSEA/VOMITING; Start 11/14/18 at 11:45 Acetaminophen (Tylenol) 650 mg PRN Q4HRS PRN PO TEMP OVER 100.4F OR MILD PAIN; Start 11/14/18 at 11:45 Al Hydroxide/Mg Hydroxide (Mylanta Plus Xs) 30 ml PRN DAILY PRN PO HEARTBURN / GAS; Start 11/14/18 at 11:45 Clonidine HCl (Catapres) 0.1 mg PRN Q6HRS PRN PO SBP>160 OR DBP>90; Start 11/14/18 at 11:45 Docusate Sodium (Colace) 100 mg PRN BID PRN PO CONSTIPATION; Start 11/14/18 at 11:45 Albuterol/ Ipratropium (Duoneb) 3 ml Q4HRS W/A NEB Last administered on 11/16/18 07:48; Start 11/14/18 at 12:00 Guaifenesin (Robitussin) 200 mg PRN Q4HRS PRN PO COUGH; Start 11/14/18 at 11:45 Magnesium Oxide (Magnesium Oxide) 400 mg [id number] PO Last administered on 11/16/18 08:57; Start 11/14/18 at 12:00 Budesonide (Pulmicort) 0.5 mg RTBID NEB Last administered on 11/16/18 07:48; Start 11/14/18 at 20:00 Diphenhydramine HCl (Benadryl) 25 mg 1X ONCE PO Last administered on 11/15/18 03:55; Start 11/15/18 at 04:00; Stop 11/15/18 at 04:01; Status DC Lactobacillus Rhamnosus (Culturelle) 1 cap BID PO Last administered on 11/16/18 08:57; Start 11/15/18 at 21:00 Potassium Chloride/Water 100 ml @ 100 mls/hr Q1H IV Last administered on 11/16/18 08:57; Start 11/16/18 at 09:00; Stop 11/16/18 at 12:59 Potassium Chloride (Klor-Con) 40 meq 1X ONCE PO Last administered on 11/16/18 08:57; Start 11/16/18 at 09:00; Stop 11/16/18 at 09:01; Status DC Magnesium Sulfate/ Dextrose 100 ml @ 100 mls/hr 1X ONCE IV Last administered on 11/16/18 08:57; Start 11/16/18 at 09:00; Stop 11/16/18 at 09:59; Status DC Prednisone (Prednisone) 30 mg DAILY PO ; Start 11/17/18 at 09:00 Active Scripts Active Doxycycline Hyclate 100 Mg Tablet 100 Mg PO BID Medrol (Methylprednisolone) 4 Mg Tab.ds.pk 1 Pkg PO UD 6 Days Reported Hydrochlorothiazide Tablet (Hydrochlorothiazide) 25 Mg Tablet 1 Tab PO DAILY Spiriva (Tiotropium [place]) 18 Mcg Cap.w.dev 1 Cap IH DAILY Proventil Hfa Inhaler (Albuterol Sulfate) 6.7 Gm Hfa.aer.ad 2 Puff IH QID Symbicort 160-4.5 Mcg Inhaler (Budesonide/Formoterol Fumarate) 10.2 Gm Hfa.aer.ad 2 Puff IH BID Metformin Hcl 500 Mg Tablet 1 Tab PO BID Losartan Potassium 50 Mg Tablet 1 Tab PO DAILY Nexium Capsule (Esomeprazole Magnesium) 40 Mg Capsule.dr 1 Cap PO DAILY Vitals/I & O Vital Sign - Last 24 Hours 11/15/18 11/15/18 11/15/18 11/15/18 14:47 16:10 19:00 20:11 Temp 98.1 98.2 98.1 98.2 Pulse 92 85 Resp 18 20 B/P (MAP) 161/84 (109) 156/87 (110) Pulse Ox 93 96 O2 Delivery Room Air Room Air Room Air Room Air 11/15/18 11/15/18 11/15/18 11/16/18 21:37 21:38 23:00 03:00 Temp 98.2 98.2 98.2 98.2 Pulse 76 66 Resp 20 20 B/P (MAP) 139/71 (93) 164/78 (106) Pulse Ox 97 94 O2 Delivery Room Air Room Air Room Air Room Air 11/16/18 11/16/18 11/16/18 11/16/18 07:00 07:50 07:50 08:00 Temp 98.0 98.0 Pulse 77 Resp 20 B/P (MAP) 163/78 (106) Pulse Ox 94 O2 Delivery Room Air Room Air Room Air Nasal Cannula O2 Flow Rate 1.0 11/16/18 11/16/18 08:57 11:00 Temp 98.0 98.0 Pulse 77 71 Resp 20 B/P (MAP) 163/78 160/86 (110) Pulse Ox 94 O2 Delivery Room Air Intake and Output 11/15/18 11/15/18 11/16/18 15:00 23:00 07:00 Intake Total 1500 ml 550 ml 420 ml Balance 1500 ml 550 ml 420 ml FULBRIGHT,LILY W MD Nov 16, 2018 11:29
--- NOTE | 2018-11-16 12:39 | NUR ---
pt removed IV as potassium was burning. pt very difficult stick. pg to Dr. Lanza. order for K+ recheck and to page him with results. pt did receive 1 bag of K+ 10 mEq and 40 PO.
[2018-11-16] MEDS: ENOXAPARIN 40 MG/0.4 ML SYRINGE. SQ SCH (13:10)
[2018-11-16] MEDS ORDERED: POTASSIUM CHLORIDE 10 MEQ TABLET.ER. PO ONE (14:00)
[2018-11-16 14:58] VITALS: BP 163/79
--- NOTE | 2018-11-16 15:44 | PDOC3 ---
Discharge Summary Date of Admission: Nov 14, 2018 Date of Discharge: Nov 16, 2018 Follow-Up: 3-5 days Admitting Diagnosis comment: discharge dx Assessment/Plan IMPRESSION 1. Acute hypoxic resp failure 2. acute exac of chronic asthma/// copd ///With bronchospasm 3. leukocytosis 4. SIRS 5. lactic acidosis 6. remote tobacco abuse x 30 yrs plan emperic iv antibiotics iv steroid taper 100mg solumedrol q 8 hrs dvt prophylaxis, lovenox budesonide 0.5 mg bid nebulizer singulair 10mg po q hs o2 support zithromax, iv rocephin pulm consult PO Zithromax and dc home today after replacing K, 30 mg prednisone po daily x 5 days, see pcp in 4 days 32 min pt exam, chart review d/c planning , > 50% of time spent with exam, chart review, pt care coordination Vitals Vitals Vital Signs Date Time Temp Pulse Resp B/P (MAP) Pulse Ox O2 Delivery O2 Flow Rate FiO2 11/16/18 11:00 98.0 71 20 160/86 (110) 94 Room Air 98.0 11/16/18 08:00 1.0 Physical Exam General: Alert, Oriented X3, Cooperative, No acute distress Heart: Regular rate, Normal S1, Normal S2 Lungs: Wheezing (resolved) Abdomen: Normal bowel sounds, Soft, No tenderness Extremities: No cyanosis, No tenderness/swelling Skin: No rashes FINAL DIAGNOSIS Problems Medical Problems: (1) RLL pneumonia Status: Acute Brief Hospital Course Ms. Menjivar is a 68 old [sex] who presented with [ copd exac] CONDITION AT DISCHARGE: Improved Discharge Medications Current Medications Albuterol/ Ipratropium (Duoneb) 3 ml 1X ONCE NEB Last administered on 11/13/18at 16:54; Start 11/13/18 at 17:00; Stop 11/13/18 at 17:01; Status DC Methylprednisolone Sodium Succinate (SOLU-Medrol 125MG VIAL) 125 mg 1X ONCE IV Last administered on 11/13/18at 17:10; Start 11/13/18 at 17:00; Stop 11/13/18 at 17:01; Status DC Albuterol/ Ipratropium (Duoneb) 3 ml 1X ONCE NEB Last administered on 11/13/18 17:50; Start 11/13/18 at 17:45; Stop 11/13/18 at 17:46; Status DC Magnesium Sulfate 50 ml @ 25 mls/hr 1X ONCE IV Last administered on 11/13/18 19:27; Start 11/13/18 at 18:15; Stop 11/13/18 at 20:14; Status DC Ceftriaxone Sodium (Rocephin) 1 gm 1X ONCE IVP Last administered on 11/13/18 19:27; Start 11/13/18 at 18:45; Stop 11/13/18 at 18:46; Status DC Azithromycin 250 ml @ 250 mls/hr 1X ONCE IV Last administered on 11/13/18 19:26; Start 11/13/18 at 18:45; Stop 11/13/18 at 19:44; Status DC Acetaminophen (Tylenol) 650 mg PRN Q4HRS PRN PO FEVER Last administered on 11/13/18at 22:34; Start 11/13/18 at 19:30; Stop 11/14/18 at 11:45; Status DC Albuterol/ Ipratropium (Duoneb) 3 ml RTQID NEB Last administered on 11/13/18 19:51; Start 11/13/18 at 20:00; Stop 11/13/18 at 20:43; Status DC Albuterol Sulfate (Ventolin Neb Soln) 2.5 mg PRN Q2HRS PRN INH shorntess of breath; Start 11/13/18 at 20:15 Hydrochlorothiazide (Hydrodiuril) 25 mg DAILY PO Last administered on 11/16/18 08:57; Start 11/14/18 at 09:00 Losartan Potassium (Cozaar) 50 mg DAILY PO Last administered on 11/16/18 08:57; Start 11/14/18 at 09:00 Non-Formulary Medication (Budesonide/ Formoterol Fumarate (Symbicort 160-4.5 Mcg Inhaler)) 2 puff BID IH ; Start 11/13/18 at 21:00; Status UNV Pantoprazole Sodium (Protonix) 40 mg DAILYAC PO Last administered on 11/16/18 08:57; Start 11/14/18 at 07:30 Metformin HCl (Glucophage) 500 mg BIDWMEALS PO Last administered on 11/16/18 08:57; Start 11/14/18 at 08:00 Prednisone (Prednisone) 20 mg DAILY PO Last administered on 11/14/18 08:41; Start 11/14/18 at 09:00; Stop 11/14/18 at 11:32; Status DC Potassium Chloride (Klor-Con) 40 meq 1X ONCE PO Last administered on 11/13/18 21:54; Start 11/13/18 at 20:15; Stop 11/13/18 at 20:38; Status DC Insulin Human Lispro (HumaLOG) 0-7 UNITS TIDWMEALHC SQ Last administered on 11/16/18 13:12; Start 11/13/18 at 21:00 Dextrose (Dextrose 50%-Water Syringe) 12.5 gm PRN Q15MIN PRN IV SEE COMMENTS; Start 11/13/18 at 20:15; Status Cancel Dextrose 250 ml PRN Q15MIN PRN IV SEE COMMENTS; Start 11/13/18 at 20:15 Budesonide (Pulmicort) 0.5 mg RTBID NEB Last administered on 11/14/18 07:51; Start 11/14/18 at 08:00; Stop 11/14/18 at 13:07; Status DC Albuterol Sulfate (Ventolin Neb Soln) 2.5 mg Q6HRS NEB Last administered on 11/14/18 07:51; Start 11/14/18 at 00:00; Stop 11/15/18 at 13:33; Status DC Sodium Chloride 500 ml @ 500 mls/hr 1X ONCE IV Last administered on 11/13/18 21:41; Start 11/13/18 at 22:00; Stop 11/13/18 at 22:59; Status DC Ceftriaxone Sodium (Rocephin) 1 gm Q24H IVP Last administered on 11/15/18 17:15; Start 11/14/18 at 17:00 Enoxaparin Sodium (Lovenox 40mg Syringe) 40 mg Q24H SQ Last administered on 11/16/18 13:12; Start 11/14/18 at 11:00 Montelukast Sodium (Singulair) 10 mg QHS PO Last administered on 11/15/18 21:16; Start 11/14/18 at 21:00 Azithromycin (Zithromax) 250 mg DAILY PO Last administered on 11/16/18 08:57; Start 11/15/18 at 09:00 Methylprednisolone Sodium Succinate (SOLU-Medrol 125MG VIAL) 100 mg Q8HRS IV Last administered on 11/16/18 06:15; Start 11/14/18 at 14:00; Stop 11/16/18 at 10:50; Status DC Sodium Chloride (Normal Saline Flush) 3 ml QSHIFT PRN IV AFTER MEDS AND BLOOD DRAWS; Start 11/14/18 at 11:45 Sodium Chloride 1,000 ml @ 100 mls/hr Q10H IV Last administered on 11/16/18 04:08; Start 11/14/18 at 11:35 Ondansetron HCl (Zofran) 4 mg PRN Q4HRS PRN IV NAUSEA/VOMITING; Start 11/14/18 at 11:45 Acetaminophen (Tylenol) 650 mg PRN Q4HRS PRN PO TEMP OVER 100.4F OR MILD PAIN; Start 11/14/18 at 11:45 Al Hydroxide/Mg Hydroxide (Mylanta Plus Xs) 30 ml PRN DAILY PRN PO HEARTBURN / GAS; Start 11/14/18 at 11:45 Clonidine HCl (Catapres) 0.1 mg PRN Q6HRS PRN PO SBP>160 OR DBP>90; Start 11/14/18 at 11:45 Docusate Sodium (Colace) 100 mg PRN BID PRN PO CONSTIPATION; Start 11/14/18 at 11:45 Albuterol/ Ipratropium (Duoneb) 3 ml Q4HRS W/A NEB Last administered on 11/16/18at 15:31; Start 11/14/18 at 12:00 Guaifenesin (Robitussin) 200 mg PRN Q4HRS PRN PO COUGH; Start 11/14/18 at 11:45 Magnesium Oxide (Magnesium Oxide) 400 mg BID76 PO Last administered on 11/16/18 08:57; Start 11/14/18 at 12:00 Budesonide (Pulmicort) 0.5 mg RTBID NEB Last administered on 11/16/18at 07:48; Start 11/14/18 at 20:00 Diphenhydramine HCl (Benadryl) 25 mg 1X ONCE PO Last administered on 11/15/18at 03:55; Start 11/15/18 at 04:00; Stop 11/15/18 at 04:01; Status DC Lactobacillus Rhamnosus (Culturelle) 1 cap BID PO Last administered on 11/16/18at 08:57; Start 11/15/18 at 21:00 Potassium Chloride/Water 100 ml @ 100 mls/hr Q1H IV Last administered on 11/16/18at 08:57; Start 11/16/18 at 09:00; Stop 11/16/18 at 12:59; Status DC Potassium Chloride (Klor-Con) 40 meq 1X ONCE PO Last administered on 11/16/18at 08:57; Start 11/16/18 at 09:00; Stop 11/16/18 at 09:01; Status DC Magnesium Sulfate/ Dextrose 100 ml @ 100 mls/hr 1X ONCE IV Last administered on 11/16/18at 08:57; Start 11/16/18 at 09:00; Stop 11/16/18 at 09:59; Status DC Prednisone (Prednisone) 30 mg DAILY PO ; Start 11/17/18 at 09:00 Potassium Chloride (Klor-Con) 10 meq 1X ONCE PO Last administered on 11/16/18at 14:42; Start 11/16/18 at 14:00; Stop 11/16/18 at 14:01; Status DC Potassium Chloride (Klor-Con) 20 meq 1X ONCE PO Last administered on 11/16/18at 14:42; Start 11/16/18 at 14:00; Stop 11/16/18 at 14:01; Status DC Active Scripts Active Doxycycline Hyclate 100 Mg Tablet 100 Mg PO BID Medrol (Methylprednisolone) 4 Mg Tab.ds.pk 1 Pkg PO UD 6 Days Reported Hydrochlorothiazide Tablet (Hydrochlorothiazide) 25 Mg Tablet 1 Tab PO DAILY Spiriva (Tiotropium [place]) 18 Mcg Cap.w.dev 1 Cap IH DAILY Proventil Hfa Inhaler (Albuterol Sulfate) 6.7 Gm Hfa.aer.ad 2 Puff IH QID Symbicort 160-4.5 Mcg Inhaler (Budesonide/Formoterol Fumarate) 10.2 Gm Hfa.aer.ad 2 Puff IH BID Metformin Hcl 500 Mg Tablet 1 Tab PO BID Losartan Potassium 50 Mg Tablet 1 Tab PO DAILY Nexium Capsule (Esomeprazole Magnesium) 40 Mg Capsule.dr 1 Cap PO DAILY Vital Signs Vital Signs Date Time Temp Pulse Resp B/P (MAP) Pulse Ox O2 Delivery O2 Flow Rate FiO2 11/16/18 15:31 98 Room Air 11/16/18 14:58 98.0 84 20 163/79 (107) 98.0 11/16/18 08:00 1.0 Labs Laboratory Tests Test 11/14/18 16:22 11/14/18 20:12 11/14/18 22:30 11/15/18 07:55 Glucose (Fingerstick) 173 mg/dL (70-99) 226 mg/dL (70-99) 226 mg/dL (70-99) Clostridium difficile Toxin B Gene Negative (Negative) Test 11/15/18 08:15 11/15/18 11:40 11/15/18 17:04 11/15/18 21:08 Magnesium Level 1.8 mg/dL (1.8-2.4) Glucose (Fingerstick) 199 mg/dL (70-99) 223 mg/dL (70-99) 270 mg/dL (70-99) Test 11/16/18 04:55 11/16/18 08:35 11/16/18 10:57 11/16/18 13:00 White Blood Count 12.7 x10^3/uL (4.0-11.0) Red Blood Count 4.41 x10^6/uL (3.50-5.40) Hemoglobin 11.6 g/dL (12.0-15.5) Hematocrit 35.5 % (36.0-47.0) Mean Corpuscular Volume 81 fL (79-100) Mean Corpuscular Hemoglobin 26 pg (25-35) Mean Corpuscular Hemoglobin Concent 33 g/dL (31-37) Red Cell Distribution Width 14.8 % (11.5-14.5) Platelet Count 343 x10^3/uL (140-400) Neutrophils (%) (Auto) 88 % (31-73) Lymphocytes (%) (Auto) 10 % (24-48) Monocytes (%) (Auto) 2 % (0-9) Eosinophils (%) (Auto) 0 % (0-3) Basophils (%) (Auto) 0 % (0-3) Neutrophils # (Auto) 11.2 x10^3/uL (1.8-7.7) Lymphocytes # (Auto) 1.2 x10^3/uL (1.0-4.8) Monocytes # (Auto) 0.3 x10^3/uL (0.0-1.1) Eosinophils # (Auto) 0.0 x10^3/uL (0.0-0.7) Basophils # (Auto) 0.0 x10^3/uL (0.0-0.2) Sodium Level 141 mmol/L (136-145) Potassium Level 2.8 mmol/L (3.5-5.1) 3.3 mmol/L (3.5-5.1) Chloride Level 100 mmol/L (98-107) Carbon Dioxide Level 29 mmol/L (21-32) Anion Gap 12 (6-14) Blood Urea Nitrogen 13 mg/dL (7-20) Creatinine 0.7 mg/dL (0.6-1.0) Estimated GFR (Cockcroft-Gault) 83.5 BUN/Creatinine Ratio 19 (6-20) Glucose Level 235 mg/dL (70-99) Calcium Level 8.6 mg/dL (8.5-10.1) Magnesium Level 1.9 mg/dL (1.8-2.4) Total Bilirubin 0.2 mg/dL (0.2-1.0) Aspartate Amino Transf (AST/SGOT) 10 U/L (15-37) Alanine Aminotransferase (ALT/SGPT) 10 U/L (14-59) Alkaline Phosphatase 49 U/L (46-116) Total Protein 7.3 g/dL (6.4-8.2) Albumin 3.1 g/dL (3.4-5.0) Albumin/Globulin Ratio 0.7 (1.0-1.7) Glucose (Fingerstick) 231 mg/dL (70-99) 225 mg/dL (70-99) Laboratory Tests Test 11/15/18 17:04 11/15/18 21:08 11/16/18 04:55 11/16/18 08:35 Glucose (Fingerstick) 223 mg/dL (70-99) 270 mg/dL (70-99) 231 mg/dL (70-99) White Blood Count 12.7 x10^3/uL (4.0-11.0) Red Blood Count 4.41 x10^6/uL (3.50-5.40) Hemoglobin 11.6 g/dL (12.0-15.5) Hematocrit 35.5 % (36.0-47.0) Mean Corpuscular Volume 81 fL (79-100) Mean Corpuscular Hemoglobin 26 pg (25-35) Mean Corpuscular Hemoglobin Concent 33 g/dL (31-37) Red Cell Distribution Width 14.8 % (11.5-14.5) Platelet Count 343 x10^3/uL (140-400) Neutrophils (%) (Auto) 88 % (31-73) Lymphocytes (%) (Auto) 10 % (24-48) Monocytes (%) (Auto) 2 % (0-9) Eosinophils (%) (Auto) 0 % (0-3) Basophils (%) (Auto) 0 % (0-3) Neutrophils # (Auto) 11.2 x10^3/uL (1.8-7.7) Lymphocytes # (Auto) 1.2 x10^3/uL (1.0-4.8) Monocytes # (Auto) 0.3 x10^3/uL (0.0-1.1) Eosinophils # (Auto) 0.0 x10^3/uL (0.0-0.7) Basophils # (Auto) 0.0 x10^3/uL (0.0-0.2) Sodium Level 141 mmol/L (136-145) Potassium Level 2.8 mmol/L (3.5-5.1) Chloride Level 100 mmol/L (98-107) Carbon Dioxide Level 29 mmol/L (21-32) Anion Gap 12 (6-14) Blood Urea Nitrogen 13 mg/dL (7-20) Creatinine 0.7 mg/dL (0.6-1.0) Estimated GFR (Cockcroft-Gault) 83.5 BUN/Creatinine Ratio 19 (6-20) Glucose Level 235 mg/dL (70-99) Calcium Level 8.6 mg/dL (8.5-10.1) Magnesium Level 1.9 mg/dL (1.8-2.4) Total Bilirubin 0.2 mg/dL (0.2-1.0) Aspartate Amino Transf (AST/SGOT) 10 U/L (15-37) Alanine Aminotransferase (ALT/SGPT) 10 U/L (14-59) Alkaline Phosphatase 49 U/L (46-116) Total Protein 7.3 g/dL (6.4-8.2) Albumin 3.1 g/dL (3.4-5.0) Albumin/Globulin Ratio 0.7 (1.0-1.7) Test 11/16/18 10:57 11/16/18 13:00 Glucose (Fingerstick) 225 mg/dL (70-99) Potassium Level 3.3 mmol/L (3.5-5.1) Allergies Allergies Coded Allergies Type Severity Reaction Last Updated Verified No Known Drug Allergies 09/30/14 No Disposition/Orders: D/C to Home Patient Instructions d/c planning 32 min LILY HARDY MD Nov 16, 2018 15:44
[2018-11-16] MEDS ORDERED: MONT10TA49 PO (15:49)
[2018-11-16] MEDS ORDERED: GUAI100L12 PO (15:49)
[2018-11-16] MEDS ORDERED: AZIT250T6 PO (15:49)
[2018-11-16] MEDS ORDERED: PRED20TA PO (15:49)
[2018-11-16] MEDS ORDERED: ACET325T9 PO (15:49)
[2018-11-16] MEDS ORDERED: LACT1CAP19 PO (15:49)
--- NOTE | 2018-11-16 17:36 | NUR ---
pt discharged home with family. meds and follow up reviewed. [place] town [place] so will not be able to f/u with PCP until she returns home. pt taken down via w/c and left in private vehicle. stable upon dc
[2018-11-17] MEDS ORDERED: predniSONE 20 MG TABLET PO SCH (09:00)
== END 2018-11-16 17:39 | disposition home or self-care (01) | DRG 871 ==
LOC: ER 16:19 → 5 SOUTH 18:45
PROVIDERS: ADMIT Internal Medicine; ATTEND Internal Medicine
DX: A41.9 Sepsis, unspecified organism (principal); J96.01 Acute respiratory failure with hypoxia; J18.1 Lobar pneumonia, unspecified organism; J45.901 Unspecified asthma with (acute) exacerbation; J44.0 Chronic obstructive pulmonary disease with (acute) lower respiratory infection; J44.1 Chronic obstructive pulmonary disease with (acute) exacerbation; E11.9 Type 2 diabetes mellitus without complications; I11.0 Hypertensive heart disease with heart failure; I50.9 Heart failure, unspecified; J20.9 Acute bronchitis, unspecified; K21.9 Gastro-esophageal reflux disease without esophagitis; Z82.49 Family history of ischemic heart disease and other diseases of the circulatory system; Z87.891 Personal history of nicotine dependence; Z83.3 Family history of diabetes mellitus; Z90.49 Acquired absence of other specified parts of digestive tract
CPT/HCPCS: 36415; 71046; 80053; 81001; 82962; 83605; 83735; 84132; 84484; 85007; 85025; 85379; 87040; 87070; 87449; 87493; 87880; 93005; 93306; 94640; 94760; 96365; 96368; 96375; J0456; J0696; J1650; J1815; J2930; J3475; J3480; J7030; J7040; J7512; J7613; J7620; J7626; Q0144; Q0163; 99285-25; G0378